=== PATIENT | female | born 1960 | race Caucasian/White ===

== ENCOUNTER → 2016-05-06 | Outpatient (CLI) | payer BC ==
[~2016-05-06] MED LIST: HYDR-3812 PO; LEVO25TA5 PO; METF1000 PO; VNL37.5T PO
--- NOTE | 2016-05-06 13:25 | Diagnostic Imaging Report ---
INDICATION: Digital mammogram bilateral screening. This study was compared to the prior exams of 02/28/15, 04/24/13 and 02/03/12. At this time, there are no current complaints. The current study was also evaluated with a Computer Aided Detection (CAD) system. FINDINGS: The fibroglandular tissue in both breasts is heterogeneously dense. This does limit the sensitivity of this exam. Overall, there does not appear to have been any significant change when compared to the prior study. No primary or secondary sign of malignancy is noted. IMPRESSION: There is no radiographic evidence for malignancy. ACR BI-RADS Category 1: Negative. Result letter will be mailed to the patient. Note: At least 10% of breast cancer is not imaged by mammography. Dictated by: Dictated on workstation # [id number]
== END ==
LOC: RAD 08:33
PROVIDERS: ATTEND Internal Medicine Hematology & Oncology
DX: Z12.31 Encounter for screening mammogram for malignant neoplasm of breast (principal)

== ENCOUNTER 2016-05-28 05:39 | Outpatient (CLI) | payer BC ==
[~2016-05-28] VITALS: Ht 160 cm; Wt 68.0 kg
--- OUTSIDE RECORDS SUMMARY | 2016-05-28 05:42 | XMS REPORT | Continuity of Care Document ---
Author Author [facility] of [facility] Address Unknown Phone Unavailable Allergies Medications Problems Date Dx Coded Attending Type Code Diagnosis Diagnosed By 03/11/1553 MADAY MCDONNELL MD, Ot D64.9 ANEMIA, UNSPECIFIED 03/11/1553 MADAY MCDONNELL MD, Ot E03.9 HYPOTHYROIDISM, UNSPECIFIED 03/11/1553 MADAY MCDONNELL MD, Ot E11.9 TYPE 2 DIABETES MELLITUS WITHOUT COMPLIC 03/11/1553 MADAY MCDONNELL MD, Ot Z79.899 OTHER [facility] (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 THERAPY 04/26/2013 MASTERSON DO, CANDI K V04.81 FLU SHOT 07/17/2014 ELLIS DO, JUAN Ot V76.12 11/01/2014 ELLIS DO, JUAN Ot V76.12 12/31/2014 ELLIS DO, JUAN Ot V76.12 03/15/2015 ELLIS DO, JUAN Ot Z12.31 06/20/2015 MADAY MCDONNELL MD, Ot D64.9 06/25/2015 ELLIS DO, JUAN Ot V76.12 06/25/2015 CALEB DO, JUAN Ot Z12.31 06/25/2015 MADAY MCDONNELL MD, Ot D64.9 06/25/2015 MADAY MCDONNELL MD, Ot R74.8 07/08/2015 MADAY MCDONNELL MD Ot R74.8 08/27/2015 MADAY MCDONNELL MD, Ot D64.9 ANEMIA, UNSPECIFIED 08/27/2015 MADAY MCDONNELL MD Ot E03.9 HYPOTHYROIDISM, UNSPECIFIED 08/27/2015 MADAY MCDONNELL MD Ot E11.9 TYPE 2 DIABETES MELLITUS WITHOUT COMPLIC 08/27/2015 MADAY MCDONNELL MD, Ot E66.9 OBESITY, UNSPECIFIED 08/27/2015 MADAY MCDONNELL MD Ot E83.118 OTHER HEMOCHROMATOSIS 08/27/2015 MADAY MCDONNELL MD Ot R94.5 ABNORMAL RESULTS OF LIVER FUNCTION STUDI 08/27/2015 MADAY MCDONNELL MD Ot Z68.30 BODY MASS INDEX (BMI) 30.0-30.9, ADULT 08/27/2015 MADAY MCDONNELL MD, Ot 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 08/28/2015 MADAY MCDONNELL MD Ot E03.9 HYPOTHYROIDISM, UNSPECIFIED 08/28/2015 MADAY MCDONNELL MD Ot E11.9 TYPE 2 DIABETES MELLITUS WITHOUT COMPLIC 08/28/2015 MADAY MCDONNELL MD Ot E66.9 OBESITY, UNSPECIFIED 08/28/2015 MADAY MCDONNELL MD, Ot E83.118 OTHER HEMOCHROMATOSIS 08/28/2015 MADAY MCDONNELL MD Ot R94.5 ABNORMAL RESULTS OF LIVER FUNCTION STUDI 08/28/2015 MADAY MCDONNELL MD, Ot Z68.30 BODY MASS INDEX (BMI) 30.0-30.9, ADULT 08/28/2015 MADAY MCDONNELL MD, Ot 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 09/04/2015 MADAY MCDONNELL MD Ot D64.9 ANEMIA, UNSPECIFIED 09/11/2015 MADAY MCDONNELL MD Ot D64.9 ANEMIA, UNSPECIFIED 10/02/2015 MADAY MCDONNELL MD Ot D64.9 ANEMIA, UNSPECIFIED 12/09/2015 MADAY MCDONNELL MD Ot D64.9 ANEMIA, UNSPECIFIED 12/10/2015 MADAY MCDONNELL MD Ot D64.9 ANEMIA, UNSPECIFIED 12/12/2015 MADAY MCDONNELL MD Ot D64.9 ANEMIA, UNSPECIFIED 12/31/2015 MADAY MCDONNELL MD Ot D64.9 ANEMIA, UNSPECIFIED 12/31/2015 MADAY MCDONNELL MD Ot E03.9 HYPOTHYROIDISM, UNSPECIFIED 12/31/2015 MADAY MCDONNELL MD Ot E11.9 TYPE 2 DIABETES MELLITUS WITHOUT COMPLIC 12/31/2015 MADAY MCDONNELL MD Ot 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 01/20/2016 MADAY MCDONNELL MD Ot D64.9 ANEMIA, UNSPECIFIED 01/20/2016 MADAY MCDONNELL MD Ot E03.9 HYPOTHYROIDISM, UNSPECIFIED 01/20/2016 MADAY MCDONNELL MD Ot E11.9 TYPE 2 DIABETES MELLITUS WITHOUT COMPLIC 01/20/2016 MADAY MCDONNELL MD Ot 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 03/23/2016 MADAY MCDONNELL MD Ot D64.9 ANEMIA, UNSPECIFIED 03/23/2016 MADAY MCDONNELL MD Ot E03.9 HYPOTHYROIDISM, UNSPECIFIED 03/23/2016 MADAY MCDONNELL MD Ot E11.9 TYPE 2 DIABETES MELLITUS WITHOUT COMPLIC 03/23/2016 MADAY MCDONNELL MD Ot 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 04/22/2016 MADAY MCDONNELL MD Ot D64.9 ANEMIA, UNSPECIFIED 04/22/2016 MADAY MCDONNELL MD Ot E03.9 HYPOTHYROIDISM, UNSPECIFIED 04/22/2016 MADAY MCDONNELL MD Ot E11.9 TYPE 2 DIABETES MELLITUS WITHOUT COMPLIC 04/22/2016 MADAY MCDONNELL MD Ot 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 05/06/2016 JUAN ELLIS DO Ot V76.12 OTH SCREEN MAMMO-MALIGN NEOPLASM OF NIDIA 05/06/2016 JUAN ELLIS DO Ot Z12.31 ENCNTR SCREEN MAMMOGRAM FOR MALIGNANT NE 05/06/2016 MADAY MCDONNELL MD Ot R74.8 ABNORMAL LEVELS OF OTHER SERUM ENZYMES 05/06/2016 MADAY MCDONNELL MD, Ot D64.9 ANEMIA, UNSPECIFIED 05/06/2016 MADAY MCDONNELL MD Ot E03.9 HYPOTHYROIDISM, UNSPECIFIED 05/06/2016 MADAY MCDONNELL MD Ot E11.9 TYPE 2 DIABETES MELLITUS WITHOUT COMPLIC 05/06/2016 MADAY MCDONNELL MD Ot 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 Visit Date/Time Discharge Status Pt. Type Provider Facility Loc./Unit Complaint [id number] 04/26/2013 12:17:00 04/26/2013 23: 59:59 [facility] Outpatient CANDI MASTERSON DO
== END 2016-05-28 13:17 ==
LOC: PREOP 05:39
PROVIDERS: ATTEND Surgery
DX: Z01.818 Encounter for other preprocedural examination (principal); Z12.11 Encounter for screening for malignant neoplasm of colon

== ENCOUNTER 2016-06-01 07:18 | Day surgery (SDC) | payer BC ==
[~2016-06-01] VITALS: Ht 160 cm; Wt 68.0 kg
--- OUTSIDE RECORDS SUMMARY | 2016-06-01 07:21 | XMS REPORT | Continuity of Care Document ---
Author Author [facility] C[facility] of [facility] Address Unknown Phone Unavailable Allergies Active Description Code Type Severity Reaction Onset Reported/Identified Relationship to Patient Clinical Status Yes No Known Drug Allergies [id number] Drug Allergy Unknown N/ A 05/28/2016 Medications Problems Date Dx Coded Attending Type Code Diagnosis Diagnosed By 03/11/1553 MADAY MCDONNELL MD, Ot D64.9 ANEMIA, UNSPECIFIED 03/11/1553 MADAY MCDONNELL MD, Ot E03.9 HYPOTHYROIDISM, UNSPECIFIED 03/11/1553 MADAY MCDONNELL MD Ot E11.9 TYPE 2 DIABETES MELLITUS WITHOUT COMPLIC 03/11/1553 MADAY MCDONNELL MD Ot 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 04/26/2013 MASTERSON DO, CANDI K V04.81 FLU SHOT 07/17/2014 ELLIS DO, JUAN Ot V76.12 11/01/2014 ELLIS DO, JUAN Ot V76.12 12/31/2014 ELLIS DO, JUAN Ot V76.12 03/15/2015 ELLIS DO, JUAN Ot Z12.31 06/20/2015 MADAY MCDONNELL MD Ot D64.9 06/25/2015 ELLIS DO, JUAN Ot V76.12 06/25/2015 ELLIS DO, JUAN Ot Z12.31 06/25/2015 MADAY MCDONNELL MD Ot D64.9 06/25/2015 MADAY MCDONNELL MD Ot R74.8 07/08/2015 MADAY MCDONNELL MD Ot R74.8 08/27/2015 MADAY MCDONNELL MD, Ot D64.9 ANEMIA, UNSPECIFIED 08/27/2015 MADAY MCDONNELL MD Ot E03.9 HYPOTHYROIDISM, UNSPECIFIED 08/27/2015 MADAY MCDONNELL MD Ot E11.9 TYPE 2 DIABETES MELLITUS WITHOUT COMPLIC 08/27/2015 MADAY MCDONNELL MD Ot E66.9 OBESITY, UNSPECIFIED 08/27/2015 KECIA CAMARENA, MADAY Couch Ot E83.118 OTHER HEMOCHROMATOSIS 08/27/2015 MADAY MCDONNELL MD Ot R94.5 ABNORMAL RESULTS OF LIVER FUNCTION STUDI 08/27/2015 MADAY MCDONNELL MD, Ot Z68.30 BODY MASS INDEX (BMI) 30.0-30.9, ADULT 08/27/2015 MADAY MCDONNELL MD, Ot 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899 OTHER PENITENTIARY (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 THERAPY 01/20/2016 MADAY MCDONNELL MD Ot D64.9 ANEMIA, UNSPECIFIED 01/20/2016 MADAY MCDONNELL MD Ot E03.9 HYPOTHYROIDISM, UNSPECIFIED 01/20/2016 MADAY MCDONNELL MD Ot E11.9 TYPE 2 DIABETES MELLITUS WITHOUT COMPLIC 01/20/2016 MADAY MCDONNELL MD Ot 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 03/23/2016 MADAY MCDONNELL MD Ot D64.9 ANEMIA, UNSPECIFIED 03/23/2016 MADAY MCDONNELL MD Ot E03.9 HYPOTHYROIDISM, UNSPECIFIED 03/23/2016 MADAY MCDONNELL MD Ot E11.9 TYPE 2 DIABETES MELLITUS WITHOUT COMPLIC 03/23/2016 MADAY MCDONNELL MD Ot Z79.899 OTHER PENITENTIARY (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 THERAPY 04/22/2016 MADAY MCDONNELL MD Ot D64.9 ANEMIA, UNSPECIFIED 04/22/2016 MADAY MCDONNELL MD Ot E03.9 HYPOTHYROIDISM, UNSPECIFIED 04/22/2016 MADAY MCDONNELL MD Ot E11.9 TYPE 2 DIABETES MELLITUS WITHOUT COMPLIC 04/22/2016 MADAY MCDONNELL MD, Ot 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 05/06/2016 JUAN ELLIS DO Ot V76.12 OTH SCREEN MAMMO-MALIGN NEOPLASM OF NIDIA 05/06/2016 JUAN ELLIS DO Ot Z12.31 ENCNTR SCREEN MAMMOGRAM FOR MALIGNANT NE 05/06/2016 MADAY MCDONNELL MD Ot R74.8 ABNORMAL LEVELS OF OTHER SERUM ENZYMES 05/06/2016 MADAY MCDONNELL MD Ot D64.9 ANEMIA, UNSPECIFIED 05/06/2016 MADAY MCDONNELL MD Ot E03.9 HYPOTHYROIDISM, UNSPECIFIED 05/06/2016 MADAY MCDONNELL MD Ot E11.9 TYPE 2 DIABETES MELLITUS WITHOUT COMPLIC 05/06/2016 MADAY MCDONNELL MD Ot 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 05/07/2016 MADAY MCDONNELL MD Ot Z12.31 ENCNTR SCREEN MAMMOGRAM FOR MALIGNANT NE 05/08/2016 MADAY MCDONNELL MD Ot Z12.31 ENCNTR SCREEN MAMMOGRAM FOR MALIGNANT NE 05/14/2016 MADAY MCDONNELL MD Ot Z12.31 ENCNTR SCREEN MAMMOGRAM FOR MALIGNANT NE 05/27/2016 MADAY MCDONNELL MD Ot D64.9 ANEMIA, UNSPECIFIED 05/27/2016 MADAY MCDONNELL MD Ot E03.9 HYPOTHYROIDISM, UNSPECIFIED 05/27/2016 MADAY MCDONNELL MD Ot E11.9 TYPE 2 DIABETES MELLITUS WITHOUT COMPLIC 05/27/2016 MADAY MCDONNELL MD Ot 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 Visit Date/Time Discharge Status Pt. Type Provider Facility Loc./Unit Complaint [id number] 04/26/2013 12:17:00 04/26/2013 23: 59:59 [facility] Outpatient CANDI MASTERSON DO
--- OUTSIDE RECORDS SUMMARY | 2016-06-01 07:22 | XMS REPORT | Continuity of Care Document ---
Author Author [facility] of [facility] Address Unknown Phone Unavailable Allergies Active Description Code Type Severity Reaction Onset Reported/Identified Relationship to Patient Clinical Status Yes No Known Drug Allergies [id number] Drug Allergy Unknown N/ A 05/28/2016 Medications Problems Date Dx Coded Attending Type Code Diagnosis Diagnosed By 03/11/1553 MADAY MCDONNELL MD, Ot D64.9 ANEMIA, UNSPECIFIED 03/11/1553 MADAY MCDONNELL MD, Ot E03.9 HYPOTHYROIDISM, UNSPECIFIED 03/11/1553 MADAY MCDONNELL MD Ot E11.9 TYPE 2 DIABETES MELLITUS WITHOUT COMPLIC 03/11/1553 MADAY MCDONNELL MD Ot 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 04/26/2013 MASTERSON DO, CANDI [...] 08/27/2015 MADAY MCDONNELL MD, Ot 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 08/28/2015 MADAY MCDONNELL MD [...] 08/28/2015 MADAY MCDONNELL MD, Ot 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 09/04/2015 MADAY MCDONNELL MD [...] 12/31/2015 MADAY MCDONNELL MD Ot Z79.899 OTHER LONG-TERM (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 THERAPY 01/20/2016 MADAY MCDONNELL MD Ot D64.9 ANEMIA, UNSPECIFIED 01/20/2016 MADAY MCDONNELL MD Ot E03.9 HYPOTHYROIDISM, UNSPECIFIED 01/20/2016 MADAY MCDONNELL MD Ot E11.9 TYPE 2 DIABETES MELLITUS WITHOUT COMPLIC 01/20/2016 MADAY MCDONNELL MD Ot 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 03/23/2016 MADAY MCDONNELL MD Ot D64.9 ANEMIA, UNSPECIFIED 03/23/2016 MADAY MCDONNELL MD Ot E03.9 HYPOTHYROIDISM, UNSPECIFIED 03/23/2016 MADAY MCDONNELL MD Ot E11.9 TYPE 2 DIABETES MELLITUS WITHOUT COMPLIC 03/23/2016 MADAY MCDONNELL MD Ot Z79.899 OTHER LONG-TERM (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 THERAPY 04/22/2016 MADAY MCDONNELL MD Ot D64.9 ANEMIA, UNSPECIFIED 04/22/2016 MADAY MCDONNELL MD Ot E03.9 HYPOTHYROIDISM, UNSPECIFIED 04/22/2016 MADAY MCDONNELL MD Ot E11.9 TYPE 2 DIABETES MELLITUS WITHOUT COMPLIC 04/22/2016 MADAY MCDONNELL MD, Ot 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 05/06/2016 JUAN ELLIS DO [...] 05/06/2016 MADAY MCDONNELL MD Ot 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 05/07/2016 MADAY MCDONNELL MD [...] 05/27/2016 MADAY MCDONNELL MD Ot 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 05/29/2016 JENN CAMARENA, VILLA Eddy Ot Z01.818 ENCOUNTER FOR OTHER PREPROCEDURAL EXAMIN 05/29/2016 JENN CAMARENA, VILLA Eddy Ot Z12.11 ENCOUNTER FOR SCREENING FOR MALIGNANT NE Procedures Results Encounters ACCT No. Visit Date/Time Discharge Status Pt. Type Provider Facility Loc./Unit Complaint [id number] 04/26/2013 12:17:00 04/26/2013 23: 59:59 [facility] Outpatient CANDI MASTERSON DO
[2016-06-01] MEDS ORDERED: NS IV 500 ML 500 ML IV PRN (07:30)
[2016-06-01] MEDS ORDERED: NALOXONE 0.4 MG/ML 1 ML (NARCAN) VIAL IVP PRN (07:30)
[2016-06-01] MEDS ORDERED: FLUMAZENIL (ROMAZICON) 0.1 MG/ML 5 ML VIAL INJ PRN (07:30)
[2016-06-01 07:53] VITALS: BP 141/88
[2016-06-01] MEDS ORDERED: METF1000 PO (08:03)
[2016-06-01] MEDS ORDERED: LEVO25TA5 PO (08:05)
[2016-06-01] MEDS ORDERED: VNL37.5T PO (08:06)
[2016-06-01] MEDS ORDERED: MIDAZOLAM 2 MG/2 ML (VERSED) VIAL ONE ×4 (08:14)
[2016-06-01] MEDS ORDERED: fentaNYL INJECTION 100 MCG/2 ML AMP ONE (08:14)
[2016-06-01] MEDS: fentaNYL INJECTION 100 MCG/2 ML AMP IVP PRN ×2 (08:25→08:28)
[2016-06-01] MEDS: MIDAZOLAM 2 MG/2 ML (VERSED) VIAL IVP PRN ×2 (08:26→08:29)
--- NOTE | 2016-06-01 08:35 | Pre-Op Note & Conscious Sedat ---
Pre-Operative Progress Note H&P Reviewed The H&P was reviewed, patient examined and no changes noted. Date H&P Reviewed: Jun 01, 2016 Time H&P Reviewed: 08:05 Pre-Op Diagnosis: screening Conscious Sedation Pre-Proced ASA Class: 2 Airway Mallampati Classification: (sokaogon appropriate class) I. II. III, IV Lungs Heart ASA score ASA 1: a normal healthy patient ASA 2: a patient with a mild systemic disease (mid diabetes, controlled hypertension, obesity ASA 3: a patient with a severe systemic disease that limits activity (angina , COPD, prior Myocardial infarction) ASA 4: a patient with an incapacitating disease that is a constant threat to life (CHF, renal failure) ASA 5: a moribund patient not expected to survive 24 hrs. (ruptured aneurysm) ASA 6: a declared brain patient whose organs are being harvested. For emergent operations, add the letter E after the classification Grade 2 Sedation Plan: Discussed options with patient/fam Note The patient is an appropriate candidate to undergo the planned procedure, sedation, and anesthesia. The patient immediately re-assessed prior to indication. VILLA BARAJAS MD Jun 01, 2016 8:35 am
--- NOTE | 2016-06-01 08:53 | Progress Note-Post Operative ---
Post-Operative Progess Note Pre-Operative Diagnosis screening Post-Operative Diagnosis normal exam Post-Op Procedure Note Date of Procedure: Jun 01, 2016 Name of Procedure: ccolonoscopy to cecum Anesthesia Type sedation VILLA BARAJAS MD Jun 01, 2016 8:53 am
--- NOTE | 2016-06-01 08:54 | Discharge Inst-Simple/Standard ---
Discharge Inst-Standard Discharge Medications New, Converted or Re-Newed RX: Other Patient Instructions/Follow Up Plan of Care/Instructions/FU: repeat colonoscopy in 10 years Activity as Tolerated: Yes Discharge Diet: ADA Diet VILLA BARAJAS MD Jun 01, 2016 8:54 am
[2016-06-01 09:10] VITALS: BP 130/87
[2016-06-01 09:40] VITALS: BP 124/89
[2016-06-01 09:50] VITALS: BP 124/89
--- NOTE | 2016-06-01 11:55 | PROCEDURE REPORT ---
PROCEDURE PHYSICIAN: VILLA BARAJAS DATE OF PROCEDURE: 06/01/2016 PROCEDURE: Screening colonoscopy. SURGEON: Dr. Barajas. INDICATION FOR THE PROCEDURE: This lady came in for screening colonoscopy. She denied any family history of colon cancer. Informed consent was obtained after reviewing the procedure in detail. DESCRIPTION OF PROCEDURE: She was placed in left lateral decubitus position and her vital signs were monitored. Conscious sedation was achieved using Versed and fentanyl. Digital rectal examination was unremarkable. The colonoscope was then introduced into the rectum and advanced all the way up to the cecum. The scope was then withdrawn slowly and the mucosa examined in a systematic fashion. There was no abnormality. She tolerated the procedure well and was taken back to the nursing area in a stable condition. IMPRESSION: 1. Normal screening colonoscopy. 2. No family history. 3. Recommend repeating in 10 years. Job ID: [id number] Dictated Date: 06/01/2016 08:52:23 Water Safety Instructor Date: 06/01/2016 11:53:44 / berto GUAMAN
== END 2016-06-01 09:50 | disposition home or self-care (01) ==
LOC: ENDO 07:18
PROVIDERS: ATTEND Surgery
DX: Z12.11 Encounter for screening for malignant neoplasm of colon (principal)

== ENCOUNTER → 2016-06-08 | Outpatient (CLI) | payer BC ==
--- OUTSIDE RECORDS SUMMARY | 2016-06-08 08:19 | XMS REPORT | Continuity of Care Document ---
Author Author [facility] Ctr of [facility] Ctr [facility] Address Unknown Phone Unavailable Allergies Active Description Code Type Severity Reaction Onset Reported/Identified Relationship to Patient Clinical Status Yes No Known Drug Allergies [id number] Drug Allergy Unknown N/ A 05/28/2016 Medications Problems Date Dx Coded Attending Type Code Diagnosis Diagnosed By 03/11/1553 MADAY MCDONNELL MD, Ot D64.9 ANEMIA, UNSPECIFIED 03/11/1553 MADAY MCDONNELL MD, Ot E03.9 HYPOTHYROIDISM, UNSPECIFIED 03/11/1553 MADAY MCDONNELL MD Ot E11.9 TYPE 2 DIABETES MELLITUS WITHOUT COMPLIC 03/11/1553 MADAY MCDONNELL MD Ot 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 04/26/2013 MASTERSON DO, CANDI [...] MCDONNELL MD, Ot D64.9 ANEMIA, UNSPECIFIED 08/27/2015 MAADY MCDONNELL MD Ot E03.9 HYPOTHYROIDISM, UNSPECIFIED 08/27/2015 [...] 08/27/2015 MADAY MCDONNELL MD, Ot 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 08/28/2015 MADAY MCDONNELL [...] 08/28/2015 MADAY MCDONNELL MD, Ot 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 09/04/2015 MADAY MCDONNELL [...] 12/31/2015 MADAY MCDONNELL MD Ot Z79.899 OTHER [facility] (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 THERAPY 01/20/2016 MADAY MCDONNELL MD Ot D64.9 ANEMIA, UNSPECIFIED 01/20/2016 MADAY MCDONNELL MD Ot E03.9 HYPOTHYROIDISM, UNSPECIFIED 01/20/2016 MADAY MCDONNELL MD Ot E11.9 TYPE 2 DIABETES MELLITUS WITHOUT COMPLIC 01/20/2016 MADAY MCDONNELL MD Ot 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 03/23/2016 MADAY MCDONNELL MD Ot D64.9 ANEMIA, UNSPECIFIED 03/23/2016 MADAY MCDONNELL MD Ot E03.9 HYPOTHYROIDISM, UNSPECIFIED 03/23/2016 MADAY MCDONNELL MD Ot E11.9 TYPE 2 DIABETES MELLITUS WITHOUT COMPLIC 03/23/2016 MADAY MCDONNELL MD Ot Z79.899 OTHER MCC (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 THERAPY 04/22/2016 MADAY MCDONNELL MD Ot D64.9 ANEMIA, UNSPECIFIED 04/22/2016 MADAY MCDONNELL MD Ot E03.9 HYPOTHYROIDISM, UNSPECIFIED 04/22/2016 MADAY MCDONNELL MD Ot E11.9 TYPE 2 DIABETES MELLITUS WITHOUT COMPLIC 04/22/2016 MADAY MCDONNELL MD, Ot 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 05/06/2016 JUAN ELLIS [...] 05/06/2016 MADAY MCDONNELL MD Ot 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 05/07/2016 MADAY MCDONNELL MD Ot Z12.31 ENCNTR SCREEN MAMMOGRAM FOR MALIGNANT NE 05/08/2016 MADAY CMDONNELL MD Ot Z12.31 ENCNTR SCREEN MAMMOGRAM FOR MALIGNANT NE 05/14/2016 MADAY MCDONNELL MD Ot Z12.31 ENCNTR SCREEN MAMMOGRAM FOR MALIGNANT NE 05/27/2016 MADAY MCDONNELL MD Ot D64.9 ANEMIA, UNSPECIFIED 05/27/2016 MADAY MCDONNELL MD Ot E03.9 HYPOTHYROIDISM, UNSPECIFIED 05/27/2016 MADAY MCDONNELL MD Ot E11.9 TYPE 2 DIABETES MELLITUS WITHOUT COMPLIC 05/27/2016 MADAY MCDONNELL MD Ot 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 Visit Date/Time Discharge Status Pt. Type Provider Facility Loc./Unit Complaint [id number] 04/26/2013 12:17:00 04/26/2013 23: 59:59 [facility] Outpatient CANDI MASTERSON DO
--- NOTE | 2016-06-08 09:56 | Diagnostic Imaging Report ---
PROCEDURE: US abdomen complete. TECHNIQUE: Multiple real-time grayscale images were obtained over the abdomen in various projections. INDICATION: Bilateral flank pain. FINDINGS: The liver demonstrates no focal mass. There is hepatopetal flow in the portal vein. The gallbladder demonstrates a 5-mm hypoechoic lesion with no shadowing compatible with polyp. The CBD is 4 mm in caliber. The right kidney is 11.3 cm, and the left kidney is 11.0 cm in length. The inferior pole of the left kidney is obscured. The spleen is 10.0 cm in length with no hydronephrosis or focal lesion. The abdominal aorta is normal in caliber. The IVC is obscured. No fluid collection or ascites in the abdomen is seen. IMPRESSION: There is a 5-mm polyp in the gallbladder with no definite stone and no evidence of cholecystitis. Dictated by: Dictated on workstation # [id number]
== END ==
LOC: RAD 08:16
PROVIDERS: ATTEND Internal Medicine
DX: K82.4 Cholesterolosis of gallbladder (principal); R10.84 Generalized abdominal pain
CPT/HCPCS: 76700

== ENCOUNTER 2016-06-11 11:30 | Outpatient (RCR) | payer BC ==
[2016-03-20 08:54] LABS: BASOPHILS % (AUTO) 0 % (0-10); EOSINOPHILS # (AUTO) 0.2 10^3/uL (0.0-0.3); EOSINOPHILS % (AUTO) 3 % (0-10); LYMPHOCYTES # (AUTO) 1.4 X 10^3 (1.0-4.0); LYMPHOCYTES % (AUTO) 30 % (12-44); MEAN CORPUSCULAR HEMOGLOBIN 30 PG (25-34); MEAN CORPUSCULAR HGB CONC 34 G/DL (32-36); MEAN CORPUSCULAR VOLUME 87 FL (80-99); MEAN PLATELET VOLUME 10.9 FL (7.4-10.4); MONOCYTES # (AUTO) 0.4 X 10^3 (0.0-1.0); MONOCYTES % (AUTO) 7 % (0-12); NEUTROPHILS # (AUTO) 2.9 X 10^3 (1.8-7.8); NEUTROPHILS % (AUTO) 59 % (42-75); PLATELET COUNT 205 10^3/uL (130-400); RED BLOOD COUNT 4.47 10^6/uL (4.35-5.85); RED CELL DISTRIBUTION WIDTH 13.4 % (10.0-14.5); WHITE BLOOD COUNT 4.8 10^3/uL (4.3-11.0)
[2016-03-20 09:13] LABS: ALANINE AMINOTRANSFERASE 110 U/L (0-55); ALBUMIN 4.1 G/DL (3.2-4.5); ANION GAP 7 MMOL/L (5-14); ASPARTATE AMINO TRANSFERASE 97 U/L (5-34); BILIRUBIN,TOTAL 0.4 MG/DL (0.1-1.0); BLOOD UREA NITROGEN 10 MG/DL (7-18); BUN/CREATININE RATIO 13; CALCIUM 9.6 MG/DL (8.5-10.1); CARBON DIOXIDE 26 MMOL/L (21-32); CHLORIDE 107 MMOL/L (98-107); GFR ESTIMATED > 60; GLUCOSE 148 MG/DL (70-105); POTASSIUM 3.7 MMOL/L (3.6-5.0); SODIUM 140 MMOL/L (135-145); TOTAL PROTEIN 6.7 G/DL (6.4-8.2)
[2016-03-20 14:28] LABS: %SAT TOTAL IRON BINDING CAPIC 32 % (15-50); TIBC 349 ug/dL (280-380)
[2016-03-23 08:08] LABS: FERRITIN 128 ng/mL (15-150); UIBC 237 ug/dL (55-450)
[2016-04-28 08:43] LABS: BASOPHILS % (AUTO) 1 % (0-10); EOSINOPHILS # (AUTO) 0.2 10^3/uL (0.0-0.3); EOSINOPHILS % (AUTO) 4 % (0-10); LYMPHOCYTES # (AUTO) 1.2 X 10^3 (1.0-4.0); LYMPHOCYTES % (AUTO) 26 % (12-44); MEAN CORPUSCULAR HEMOGLOBIN 30 PG (25-34); MEAN CORPUSCULAR HGB CONC 35 G/DL (32-36); MEAN CORPUSCULAR VOLUME 87 FL (80-99); MEAN PLATELET VOLUME 10.1 FL (7.4-10.4); MONOCYTES # (AUTO) 0.3 X 10^3 (0.0-1.0); MONOCYTES % (AUTO) 6 % (0-12); NEUTROPHILS % (AUTO) 63 % (42-75); PLATELET COUNT 226 10^3/uL (130-400); RED BLOOD COUNT 4.01 10^6/uL (4.35-5.85); RED CELL DISTRIBUTION WIDTH 13.6 % (10.0-14.5); WHITE BLOOD COUNT 4.8 10^3/uL (4.3-11.0)
[2016-04-28 09:06] LABS: ALANINE AMINOTRANSFERASE 77 U/L (0-55); ALBUMIN 4.2 G/DL (3.2-4.5); ANION GAP 9 MMOL/L (5-14); ASPARTATE AMINO TRANSFERASE 58 U/L (5-34); BILIRUBIN,TOTAL 0.5 MG/DL (0.1-1.0); BLOOD UREA NITROGEN 9 MG/DL (7-18); BUN/CREATININE RATIO 11; CALCIUM 9.2 MG/DL (8.5-10.1); CARBON DIOXIDE 25 MMOL/L (21-32); CHLORIDE 107 MMOL/L (98-107); GFR ESTIMATED > 60; GLUCOSE 121 MG/DL (70-105); POTASSIUM 3.6 MMOL/L (3.6-5.0); SODIUM 141 MMOL/L (135-145); TOTAL PROTEIN 6.7 G/DL (6.4-8.2)
[2016-04-28 11:48] LABS: %SAT TOTAL IRON BINDING CAPIC 25 % (15-50); TIBC 390 ug/dL (280-380)
[2016-04-28 15:08] LABS: UIBC 291 ug/dL (55-450)
[2016-04-29 07:41] LABS: FERRITIN 22 ng/mL (15-150)
[~2016-06-11 11:30] MED LIST changes: -HYDR-3812 PO
[2016-06-11 11:37] LABS: BASOPHILS % (AUTO) 0 % (0-10); EOSINOPHILS # (AUTO) 0.2 10^3/uL (0.0-0.3); EOSINOPHILS % (AUTO) 2 % (0-10); LYMPHOCYTES # (AUTO) 2.1 X 10^3 (1.0-4.0); LYMPHOCYTES % (AUTO) 30 % (12-44); MEAN CORPUSCULAR HEMOGLOBIN 29 PG (25-34); MEAN CORPUSCULAR HGB CONC 34 G/DL (32-36); MEAN CORPUSCULAR VOLUME 86 FL (80-99); MEAN PLATELET VOLUME 10.9 FL (7.4-10.4); MONOCYTES # (AUTO) 0.5 X 10^3 (0.0-1.0); MONOCYTES % (AUTO) 7 % (0-12); NEUTROPHILS # (AUTO) 4.1 X 10^3 (1.8-7.8); NEUTROPHILS % (AUTO) 61 % (42-75); PLATELET COUNT 225 10^3/uL (130-400); RED BLOOD COUNT 4.31 10^6/uL (4.35-5.85); RED CELL DISTRIBUTION WIDTH 13.2 % (10.0-14.5); WHITE BLOOD COUNT 6.8 10^3/uL (4.3-11.0)
[2016-06-11 12:10] LABS: ALANINE AMINOTRANSFERASE 86 U/L (0-55); ALBUMIN 4.3 G/DL (3.2-4.5); ANION GAP 11 MMOL/L (5-14); ASPARTATE AMINO TRANSFERASE 79 U/L (5-34); BILIRUBIN,TOTAL 0.3 MG/DL (0.1-1.0); BLOOD UREA NITROGEN 10 MG/DL (7-18); BUN/CREATININE RATIO 11; CALCIUM 9.6 MG/DL (8.5-10.1); CARBON DIOXIDE 23 MMOL/L (21-32); CHLORIDE 107 MMOL/L (98-107); CREATININE SERUM 0.88 MG/DL (0.60-1.30); GFR ESTIMATED > 60; GLUCOSE 101 MG/DL (70-105); POTASSIUM 4.4 MMOL/L (3.6-5.0); SODIUM 141 MMOL/L (135-145)
[2016-07-01] MEDS ORDERED: HYDR-3812 PO (09:02)
== END 2016-06-18 | disposition home or self-care (01) ==
LOC: ONC 11:30
PROVIDERS: ATTEND Internal Medicine Hematology & Oncology
DX: E83.118 Other hemochromatosis (principal); E03.9 Hypothyroidism, unspecified; E11.9 Type 2 diabetes mellitus without complications; Z79.899 Other long term (current) drug therapy
CPT/HCPCS: 36415; 80053; 82728; 83540; 84439; 84443; 85025; 99195; 99213

== ENCOUNTER 2016-06-25 09:05 | Outpatient (CLI) | payer BC ==
[~2016-06-25] VITALS: Ht 160 cm; Wt 68.0 kg
--- OUTSIDE RECORDS SUMMARY | 2016-06-25 09:08 | XMS REPORT | Continuity of Care Document ---
Author Author [facility] Address Unknown Phone Unavailable Allergies Active Description Code Type Severity Reaction Onset Reported/Identified Relationship to Patient Clinical Status Yes No Known Drug Allergies [id number] Drug Allergy Unknown N/ A 05/28/2016 Medications Problems Date Dx Coded Attending Type Code Diagnosis Diagnosed By 03/11/1553 MADAY MCDONNELL MD, Ot D64.9 ANEMIA, UNSPECIFIED 03/11/1553 MADAY MCDONNELL MD, Ot E03.9 HYPOTHYROIDISM, UNSPECIFIED 03/11/1553 MADAY MCDONNELL MD Ot E11.9 TYPE 2 DIABETES MELLITUS WITHOUT COMPLIC 03/11/1553 MADAY MCDONNELL MD Ot 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 TENDER (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 04/26/2013 MASTERSON DO, CANDI [...] 08/27/2015 MADAY MCDONNELL MD, Ot 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 TENDER (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 THERAPY 08/28/2015 MADAY MCDONNELL MD [...] 08/28/2015 MADAY MCDONNELL MD, Ot 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 TENDER (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 THERAPY 09/04/2015 MADAY MCDONNELL MD Ot D64.9 ANEMIA, UNSPECIFIED 09/11/2015 MADAY MCDONNELL MD Ot D64.9 ANEMIA, UNSPECIFIED 10/02/2015 MADAY MCDONNELL MD Ot D64.9 ANEMIA, UNSPECIFIED 12/09/2015 MADAY MCDONNELL MD Ot D64.9 ANEMIA, UNSPECIFIED 12/10/2015 MADAY MCDONNELL MD Ot D64.9 ANEMIA, UNSPECIFIED 12/12/2015 MADAY MCDONNELL MD Ot D64.9 ANEMIA, UNSPECIFIED 12/31/2015 MDAAY MCDONNELL MD Ot D64.9 ANEMIA, UNSPECIFIED 12/31/2015 MADAY MCDONNELL MD Ot E03.9 HYPOTHYROIDISM, UNSPECIFIED 12/31/2015 MADAY MCDONNELL MD Ot E11.9 TYPE 2 DIABETES MELLITUS WITHOUT COMPLIC 12/31/2015 MADAY MCDONNELL MD Ot Z79.899 OTHER LONGTERM (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 THERAPY 01/20/2016 MADAY MCDONNELL MD Ot D64.9 ANEMIA, UNSPECIFIED 01/20/2016 MADAY MCDONNELL MD Ot E03.9 HYPOTHYROIDISM, UNSPECIFIED 01/20/2016 MADAY MCDONNELL MD Ot E11.9 TYPE 2 DIABETES MELLITUS WITHOUT COMPLIC 01/20/2016 MADAY MCDONNELL MD Ot 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 TENDER (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 THERAPY 03/23/2016 MADAY MCDONNELL MD Ot D64.9 ANEMIA, UNSPECIFIED 03/23/2016 MADAY MCDONNELL MD Ot E03.9 HYPOTHYROIDISM, UNSPECIFIED 03/23/2016 MADAY MCDONNELL MD Ot E11.9 TYPE 2 DIABETES MELLITUS WITHOUT COMPLIC 03/23/2016 MADAY MCDONNELL MD Ot Z79.899 OTHER LONGTERM (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 THERAPY 04/22/2016 MADAY MCDONNELL MD Ot D64.9 ANEMIA, UNSPECIFIED 04/22/2016 MADAY MCDONNELL MD Ot E03.9 HYPOTHYROIDISM, UNSPECIFIED 04/22/2016 MADAY MCDONNELL MD Ot E11.9 TYPE 2 DIABETES MELLITUS WITHOUT COMPLIC 04/22/2016 MADAY MCDONNELL MD, Ot 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 TENDER (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 THERAPY 05/06/2016 JUAN ELLIS DO [...] 05/06/2016 MADAY MCDONNELL MD Ot 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 TENDER (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 THERAPY 05/07/2016 MADAY MCDONNELL MD [...] 05/27/2016 MADAY MCDONNELL MD Ot 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 TENDER (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 THERAPY 05/29/2016 JENN CAMARENA, VILLA [...] Z12.11 ENCOUNTER FOR SCREENING FOR MALIGNANT NE 06/09/2016 JUAN ELLIS DO Ot K82.4 CHOLESTEROLOSIS OF GALLBLADDER 06/09/2016 JUAN ELLIS DO Ot R10.84 GENERALIZED ABDOMINAL PAIN 06/18/2016 MADAY MCDONNELL MD Ot D64.9 ANEMIA, UNSPECIFIED 06/18/2016 MADAY MCDONNELL MD Ot E03.9 HYPOTHYROIDISM, UNSPECIFIED 06/18/2016 MADAY MCDONNELL MD Ot E11.9 TYPE 2 DIABETES MELLITUS WITHOUT COMPLIC 06/18/2016 MADAY MCDONNELL MD Ot 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 TENDER (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 THERAPY 06/19/2016 MADAY MCDONNELL MD Ot E03.9 HYPOTHYROIDISM, UNSPECIFIED 06/19/2016 MADAY MCDONNELL MD Ot E11.9 TYPE 2 DIABETES MELLITUS WITHOUT COMPLIC 06/19/2016 MADAY MCDONNELL MD Ot E83.118 OTHER HEMOCHROMATOSIS 06/19/2016 MADAY MCDONNELL MD Ot Z79.899 OTHER LONGTERM (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 THERAPY Procedures Results Encounters ACCT No. Visit Date/Time Discharge Status Pt. Type Provider Facility Loc./Unit Complaint [id number] 04/26/2013 12:17:00 04/26/2013 23: 59:59 CLS Outpatient CANDI MASTERSON DO
== END 2016-06-25 10:17 ==
LOC: PREOP 09:05
PROVIDERS: ATTEND Surgery
DX: Z01.818 Encounter for other preprocedural examination (principal); K82.4 Cholesterolosis of gallbladder; K13.0 Diseases of lips

== ENCOUNTER 2016-07-01 05:49 | Day surgery (SDC) | payer BC ==
[~2016-07-01] VITALS: Ht 160 cm; Wt 68.0 kg
[2016-07-01] MEDS: LACTATED RINGERS 1,000 ML IV PRN ×2 (06:15→08:30)
[2016-07-01 06:20] VITALS: BP 146/99
[2016-07-01] MEDS ORDERED: ceFAZolin 1,000 MG (ANCEF) VIAL ONE (06:26)
[2016-07-01] MEDS ORDERED: metroNIDAZOLE 500MG/100ML IVPB 100 ML ONE (06:26)
[2016-07-01] MEDS ORDERED: NS (IVPB) 50 ML ONE (06:27)
[2016-07-01] MEDS ORDERED: metroNIDAZOLE 500 MG/100 ML IVPB (PRE-MIX) IV ONE (07:00)
[2016-07-01] MEDS ORDERED: CATHETER FLUSH 10 ML SYR IV PRN (07:00)
[2016-07-01] MEDS ORDERED: ceFAZolin 1 GM/NS 50 ML IVPB IV ONE ×2 (07:00)
[2016-07-01] MEDS ORDERED: DEXAMETHASONE PF 10 MG/ML (DECADRON) VIAL ONE (07:04)
[2016-07-01] MEDS ORDERED: ONDANSETRON 4 MG/2 ML (SDV) Z0FRAN ONE (07:04)
[2016-07-01] MEDS ORDERED: ROCURONIUM 50 MG/5 ML (ZEMURON) VIAL IV ONE (07:04)
[2016-07-01] MEDS ORDERED: SEVOFLURANE (ULTANE) 15 ML INHAL SOLN ONE (07:04)
[2016-07-01] MEDS ORDERED: LIDOCAINE PF 2% 10 ML (XYLOCAINE) AMP ONE (07:04)
[2016-07-01] MEDS ORDERED: LACTATED RINGERS 1,000 ML IV ONE ×2 (07:04→08:50)
[2016-07-01] MEDS ORDERED: proPOfol 200 MG/20 ML (DIPRIVAN) VIAL IV ONE (07:04)
[2016-07-01] MEDS ORDERED: MIDAZOLAM 2 MG/2 ML (VERSED) VIAL ONE (07:04)
[2016-07-01] MEDS ORDERED: fentaNYL INJECTION 250 MCG/5 ML AMP ONE (07:04)
[2016-07-01] MEDS ORDERED: BUP/EPI 0.25% 1:200,000 (MARCAINE) 30 ML VIAL ONE (07:25)
--- NOTE | 2016-07-01 07:57 | Progress Note-Pre Operative ---
Pre-Operative Progress Note H&P Reviewed The H&P was reviewed, patient examined and no changes noted. Date H&P Reviewed: Jul 01, 2016 Time H&P Reviewed: 07:57 Pre-Operative Diagnosis: GB polyp. Yoan cyst-lower lip VILLA BARAJAS MD Jul 01, 2016 7:57 am
[2016-07-01] MEDS ORDERED: NEOSTIGMINE (BLOXIVERZ ) 1 MG/1ML 10 ML VIAL ONE (08:42)
[2016-07-01] MEDS ORDERED: GLYCOPYRROLATE 0.2 MG/ML (ROBINUL) 2 ML VIAL ONE (08:42)
--- NOTE | 2016-07-01 09:01 | Progress Note-Post Operative ---
Post-Operative Progess Note Pre-Operative Diagnosis GB polyp. Yoan cyst-lower lip Post-Operative Diagnosis same Post-Op Procedure Note Date of Procedure: Jul 01, 2016 Name of Procedure: robotic-assisted cholecystectomy Excision of cyst lower lip Anesthesia Type Gen. Estimated blood loss (mL): minimal Specimen(s) collected gallbladder. Cyst from the lower lip VILLA BARAJAS MD Jul 01, 2016 9:01 am
[2016-07-01] MEDS ORDERED: HYDR-3812 PO (09:02)
--- NOTE | 2016-07-01 09:03 | Discharge Inst-Simple/Standard ---
Discharge Inst-Standard Discharge Medications New, Converted or Re-Newed RX: RX on Chart Patient Instructions/Follow Up Plan of Care/Instructions/FU: dressings off in 48 hours. Incentive spirometry. Follow-up in 3 weeks. Activity as Tolerated: Yes Discharge Diet: No Restrictions VILLA BARAJAS MD Jul 01, 2016 9:03 am
[2016-07-01] MEDS ORDERED: MEPERIDINE (DEMEROL) INJ 50 MG/ML IVP PRN (09:15)
[2016-07-01] MEDS ORDERED: ONDANSETRON 4 MG/2 ML (SDV) Z0FRAN IVP PRN (09:15)
[2016-07-01] MEDS ORDERED: HYDROmorphone (DILAUDID) 2 MG/ML VIAL IVP PRN (09:15)
[2016-07-01] MEDS ORDERED: morphine INJ 10 MG/ML 1ML (SYR OR VIAL) IVP PRN (09:15)
[2016-07-01] MEDS ORDERED: KETOROLAC 30 MG/ML VIAL ONE (09:34)
[2016-07-01] MEDS ORDERED: KETOROLAC 30 MG/ML VIAL IVP ONE (09:45)
[2016-07-01 10:10] VITALS: BP 130/63
[2016-07-01 10:40] VITALS: BP 136/66
[2016-07-01 11:10] VITALS: BP 133/78
--- NOTE | 2016-07-01 11:34 | OPERATIVE REPORT ---
PROCEDURE PHYSICIAN: VILLA BARAJAS DATE OF PROCEDURE: 07/01/2016 PREOPERATIVE DIAGNOSIS: 1. Symptomatic polyp in the gallbladder . 2. 1-cm cyst lower lip. POSTOPERATIVE DIAGNOSIS: 1. Symptomatic polyp in the gallbladder. 2. 1-cm cyst lower lip. OPERATION: 1. Robotic assisted cholecystectomy. 2. Excision of cyst lower lip. SURGEON: Alexy. ANESTHESIA: General. BLOOD LOSS: Minimal FLUIDS: 800 cc's crystalloids TYPE OF WOUND: Type 2 (Clean-contaminant wound. INDICATION FOR THE PROCEDURE: This lady presented with symptoms due to a small polyp in the gallbladder. She was therefore offered cholecystectomy using minimally invasive technique. During the visit, she requested excision of a long-standing 1 cm cystic lesion on the lower lip, on the right side. I agreed to do so. Informed consent was obtained after reviewing the operative details and complications of bile leak and persistence of her symptoms and wound infection. DESCRIPTION OF THE PROCEDURE: 1. ROBOTIC ASSISTED CHOLECYSTECTOMY: She was placed supine on the operative table and general anesthesia induced using an endotracheal tube. A gram of Ancef and 500 mg of Flagyl were administered intravenously as prophylaxis against wound infection. Sequential compression devices were placed around her legs, to minimize the risk of venous thrombosis. Abdomen was prepared and draped in the usual sterile manner. A subumbilical incision was made and pneumoperitoneum established using a Veress needle. Intraabdominal pressure was maintained at 15 mmHg, using carbon dioxide insufflation. A 12 mm trocar was placed and anatomy visualized using the 3 dimensional, high definition laparoscope associated da Kristy system. Under direct view, I placed an 8 mm cannula over each side of the abdomen, followed by a 5 mm trocar over the left upper quadrant. The patient was then turned into reverse Trendelenburg position with the right side tilted up. The robotic system was then docked in place. The pylorus of the stomach was adherent to the body of the gallbladder. It was taken down using hook cautery. Subsequently, the fundus of the gallbladder was retracted cephalad and infundibulum grasped with the robotic Cadiere forceps. Peritoneum overlying Calot's triangle was incised using the hook cautery, delineating the cystic duct and artery. The former was first divided between locking clips. The cystic artery being slender was controlled using the hook cautery itself. Cholecystectomy was then completed using the same device. The gallbladder then placed in an Endo Catch bag and removed via the subumbilical trocar site. The fascia over this incision was closed using number 1 Vicryl using an Endo Close device under direct laparoscopic view. Skin incisions were closed using 4-0 Vicryl, in a subcuticular fashion. 0.25% Marcaine with epinephrine was infiltrated along the incisions, both preemptively and at the conclusion of the operation. 2. EXCISION OF CYST LOWER LIP: After adequate antiseptic preparation, preemptive analgesia was established using 0.25% Marcaine with epinephrine. An elliptical incision about 1.5 cm long was made and the cyst excised. Hemostasis was achieved using cautery and the incision closed using interrupted 4-0 Vicryl sutures. Steri-Strips were then applied. She tolerated the procedures well, was extubated in the operating room and taken to the recovery room in a stable condition. [place], sponges, and instruments were correct at the end of the operation. Job ID: [id number] Dictated Date: 07/01/2016 09:00:58 Proof Machine Operator Supervisor Date: 07/01/2016 11:21:32 / anu GUAMAN
--- OUTSIDE RECORDS SUMMARY | 2016-07-05 04:14 | XMS REPORT | Continuity of Care Document ---
Author Author [facility] Address Unknown Phone Unavailable Allergies Active Description Code Type Severity Reaction Onset Reported/Identified Relationship to Patient Clinical Status Yes No Known Drug Allergies [id number] Drug Allergy Unknown N/ A 05/28/2016 Medications Problems Date Dx Coded Attending Type Code Diagnosis Diagnosed By 03/11/1553 MADAY MCDONNELL MD, Ot D64.9 ANEMIA, UNSPECIFIED 03/11/1553 MADAY MCDONNELL MD, Ot E03.9 HYPOTHYROIDISM, UNSPECIFIED 03/11/1553 MADAY MCDONNELL MD Ot E11.9 TYPE 2 DIABETES MELLITUS WITHOUT COMPLIC 03/11/1553 MADAY MCDONNELL MD Ot 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.899 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 LINING MACHINE TENDER (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 THERAPY 04/26/2013 MASTERSON [...] 08/27/2015 MADAY MCDONNELL MD, Ot Z79.899 OTHER LINING MACHINE TENDER (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 THERAPY 08/28/2015 MADAY [...] 08/28/2015 MADAY MCDONNELL MD, Ot Z79.899 OTHER LINING MACHINE TENDER (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 THERAPY 09/04/2015 MADAY [...] 12/31/2015 MADAY MCDONNELL MD Ot Z79.899 OTHER GROUP HOME (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 THERAPY 01/20/2016 MADAY MCDONNELL MD Ot D64.9 ANEMIA, UNSPECIFIED 01/20/2016 MADAY MCDONNELL MD Ot E03.9 HYPOTHYROIDISM, UNSPECIFIED 01/20/2016 MADAY MCDONNELL MD Ot E11.9 TYPE 2 DIABETES MELLITUS WITHOUT COMPLIC 01/20/2016 MADAY MCDONNELL MD Ot Z79.899 OTHER LINING MACHINE TENDER (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 THERAPY 03/23/2016 MADAY MCDONNELL MD Ot D64.9 ANEMIA, UNSPECIFIED 03/23/2016 MADAY MCDONNELL MD Ot E03.9 HYPOTHYROIDISM, UNSPECIFIED 03/23/2016 MADAY MCDONNELL MD Ot E11.9 TYPE 2 DIABETES MELLITUS WITHOUT COMPLIC 03/23/2016 MADAY MCDONNELL MD Ot Z79.899 OTHER GROUP HOME (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 THERAPY 04/22/2016 MADAY MCDONNELL MD Ot D64.9 ANEMIA, UNSPECIFIED 04/22/2016 MADAY MCDONNELL MD Ot E03.9 HYPOTHYROIDISM, UNSPECIFIED 04/22/2016 MADAY MCDONNELL MD Ot E11.9 TYPE 2 DIABETES MELLITUS WITHOUT COMPLIC 04/22/2016 MADAY MCDONNELL MD, Ot Z79.899 OTHER LINING MACHINE TENDER (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 THERAPY 05/06/2016 JUAN [...] 05/06/2016 MADAY MCDONNELL MD Ot Z79.899 OTHER LINING MACHINE TENDER (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 THERAPY 05/07/2016 MADAY [...] 05/27/2016 MADAY MCDONNELL MD Ot Z79.899 OTHER LINING MACHINE TENDER (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 THERAPY 05/29/2016 JENN [...] ENCOUNTER FOR SCREENING FOR MALIGNANT NE 06/09/2016 CALEB GARZON JUAN Ot K82.4 CHOLESTEROLOSIS OF GALLBLADDER 06/09/2016 CALEB GARZON JUAN Ot R10.84 GENERALIZED ABDOMINAL PAIN 06/18/2016 KECIA CAMARENA MADAY Iza Ot D64.9 ANEMIA, UNSPECIFIED 06/18/2016 MADAY MCDONNELL MD Ot E03.9 HYPOTHYROIDISM, UNSPECIFIED 06/18/2016 KECIA CAMARENA MADAY K Ot E11.9 TYPE 2 DIABETES MELLITUS WITHOUT COMPLIC 06/18/2016 KECIA CAMARENA MADAY Iza Ot Z79.899 OTHER LINING MACHINE TENDER (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 THERAPY 06/19/2016 MADAY MCDONNELL MD Ot E03.9 HYPOTHYROIDISM, UNSPECIFIED 06/19/2016 MADAY MCDONNELL MD Ot E11.9 TYPE 2 DIABETES MELLITUS WITHOUT COMPLIC 06/19/2016 MADAY MCDONNELL MD Ot E83.118 OTHER HEMOCHROMATOSIS 06/19/2016 MADAY MCDONNELL MD Ot Z79.899 OTHER GROUP HOME (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 THERAPY 06/25/2016 IVLLA BARAJAS MD Ot K13.0 DISEASES OF LIPS 06/25/2016 VILLA BARAJAS MD Ot K82.4 CHOLESTEROLOSIS OF GALLBLADDER 06/25/2016 VILLA BARAJAS MD Ot Z01.818 ENCOUNTER FOR OTHER PREPROCEDURAL EXAMIN 06/25/2016 TOMMY ELLIS DOI Ot K82.4 CHOLESTEROLOSIS OF GALLBLADDER 06/25/2016 TOMMY ELLIS DOI Ot R10.84 GENERALIZED ABDOMINAL PAIN 06/26/2016 VILLA BARAJAS MD Ot K13.0 DISEASES OF LIPS 06/26/2016 VILLA BARAJAS MD Ot K82.4 CHOLESTEROLOSIS OF GALLBLADDER 06/26/2016 VILLA BARAJAS MD Ot Z01.818 ENCOUNTER FOR OTHER PREPROCEDURAL EXAMIN Procedures Results Test Result Range Urine beta human chorionic gonadotropin (hCG) measurement - 07/01/16 06:10 Urine beta human chorionic gonadotropin (hCG) measurement NEGATIVE NEGATIVE Methicillin resistant Staphylococcus aureus (MRSA) screening culture - 06:50 Methicillin resistant Staphylococcus aureus (MRSA) screening culture NEG NRG Encounters ACCT No. Visit Date/Time Discharge Status Pt. Type Provider Facility Loc./Unit Complaint [id number] 04/26/2013 12:17:00 04/26/2013 23: 59:59 CLS Outpatient CANDI MASTERSON DO
--- OUTSIDE RECORDS SUMMARY | 2016-07-05 04:14 | XMS REPORT | Clinical Summary ---
Author Author tatyana lechuga DO, [place] [address] Phone Unavailable Allergies, Adverse Reactions, Alerts Allergy Name Reaction Description Start Date Severity Status Provider No Known Allergies Lucía Collins Conditions or Problems Problem Name Problem Code Onset Date Status Entry Date Provider Comment Standard Description Annotate WELL WOMAN V70.0 Active Lindsey Landers ROUTINE GENERAL MEDICAL EXAMINATION AT HEALTH CARE FACILITY ANEMIA NOS 285.9 Active Lindsey Landers UNSPECIFIED ANEMIA WEIGHT GAIN, ABNORMAL 783.1 Active Lindsey Landers ABNORMAL WEIGHT GAIN LIVER FUNCTION TESTS, ABNORMAL 794.8 Active Lindsey Landers NONSPECIFIC ABNORMAL RESULTS OF LIVER FUNCTION STUDY OTHER NONSPECIFIC ABNORMAL SERUM ENZYME LEVELS 790.5 Active 2011 Leanne Sinai OTHER NONSPECIFIC ABNORMAL SERUM ENZYME LEVELS HYPERGLYCEMIA, MILD 790.6 Active Lindsey Landers OTHER ABNORMAL BLOOD CHEMISTRY OTHER HEMOCHROMATOSIS 275.03 Active Lindsey Landers OTHER HEMOCHROMATOSIS 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 Lindsey Landers GENERALIZED OSTEOARTHROSIS, INVOLVING HAND DIABETES MELLITUS, NONINSULIN DEPENDENT (NIDDM) 250.02 Active Lindsey Landers DIABETES MELLITUS WITHOUT MENTION OF COMPLICATION, TYPE II OR UNSPECIFIED TYPE, UNCONTROLLED HYPOTHYROIDISM, PRIMARY 244.9 Active Lindsey Landers UNSPECIFIED HYPOTHYROIDISM Medication List Medication Instructions Start Date Stop Date Generic Name NDC Status Provider Patient Instruction EFFEXOR XR 37.5 MG [id number] 1 PO daily VENLAFAXINE HCL 51450098967 Active Leanne Rawls SYNTHROID 0.05 MG TAB 1 PO Daily LEVOTHYROXINE SODIUM 68205420604 Active Leanne Rawls PREMPRO 0.3-1.5 MG TABS 1 PO daily CONJ ESTROG-MEDROXYPROGEST IFEANYI 38873970710 Active Lindsey Arthur Landers Vital Signs Date Name Value Unit Range Description blood pressure, diastolic 70 mm[Hg] BP mtz blood pressure, systolic 125 mm[Hg] BP sys pulse rate E&M 80 /min Heart rate respiratory rate E&M 14 /min Resp rate weight E&M 165 [lb_av] Weight Measured blood pressure, diastolic 78 mm[Hg] BP mtz blood pressure, systolic 138 mm[Hg] BP sys pulse rate E&M 80 /min Heart rate respiratory rate E&M 14 /min Resp rate weight E&M 160 [lb_av] Weight Measured blood pressure, diastolic 58 mm[Hg] BP mtz blood pressure, systolic 118 mm[Hg] BP sys pulse rate E&M 74 /min Heart rate respiratory rate E&M 14 /min Resp rate temperature E&M 98.6 [degF] Body temperature weight E&M 164 [lb_av] Weight Measured Diagnostic Results Date Name Value Unit Range Description Clinical Lists Update: CBC,CMP,Chol,Trig,TSH,Free T4,Ferritin,HgA1c - Chemistry Estimated Glomerular Filtration Rate (calc) 79 mL/min/1.73m2 glucose, plasma fasting 160 mg/dL albumin, serum 4.3 g/dL alkaline phosphatase, serum 108 U/L urea nitrogen, blood 11 mg/dL calcium, serum 9.6 mg/dL chloride, serum 104 mmol/L cholesterol, serum 124 mg/dL anion gap, serum sodium, serum 141 mmol/L triglyceride, serum, fasting 80 mg/dL bilirubin, serum, total 0.5 mg/dL alanine aminotransferase (SGPT), serum 108 U/L aspartate aminotransferase (SGOT), serum 60 U/L protein, total, serum 7.0 g/dL potassium, serum 4.1 mmol/L thyroid stimulating hormone, serum 2.93 u[iU]/mL hemoglobin A1C, blood, as % of total hemoglobin 6.1 % thyroxine, serum, free 0.70 ng/dL ferritin, serum 130.1 ng/mL creatinine, serum 0.8 mg/dL carbon dioxide, venous blood 30.0 mmol/L Clinical Lists Update: CBC,CMP,Chol,Trig,TSH,Free T4,Ferritin,HgA1c - Hematology erythrocyte (RBC) count 4.61 10*6/mm3 leukocyte count, blood 6.1 10*3/mm3 mean corpuscular volume, RBC 97 fL red blood cell distribution width 13.6 % hemoglobin, blood 14.3 g/dL platelet count 202 10*3/mm3 hematocrit, blood 45 % Clinical Lists Update: CBC,CMP,FLP,TSH,Free T4,HgA1c - Chemistry Estimated Glomerular Filtration Rate (calc) 82 mL/min/1.73m2 glucose, plasma fasting 131 mg/dL cholesterol/HDL ratio, serum 3.0 anion gap, serum sodium, serum 139 mmol/L triglyceride, serum, fasting 74 mg/dL bilirubin, serum, total 0.5 mg/dL alanine aminotransferase (SGPT), serum 113 U/L aspartate aminotransferase (SGOT), serum 68 U/L protein, total, serum 7.0 g/dL potassium, serum 3.8 mmol/L LDL cholesterol, serum 54 mg/dL thyroid stimulating hormone, serum 4.29 u[iU]/mL hemoglobin A1C, blood, as % of total hemoglobin 6.3 % HDL cholesterol, serum 34.0 mg/dL thyroxine, serum, free 0.82 ng/dL bilirubin, serum, direct 0.1 mg/dL creatinine, serum 0.8 mg/dL carbon dioxide, venous blood 27.0 mmol/L cholesterol, serum 103 mg/dL chloride, serum 105 mmol/L calcium, serum 8.7 mg/dL urea nitrogen, blood 10 mg/dL alkaline phosphatase, serum 89 U/L albumin, serum 4.5 g/dL Clinical Lists Update: CBC,CMP,FLP,TSH,Free T4,HgA1c - Hematology leukocyte count, blood 4.5 10*3/mm3 erythrocyte (RBC) count 4.38 10*6/mm3 mean corpuscular volume, RBC 94 fL platelet count 182 10*3/mm3 red blood cell distribution width 13.8 % hematocrit, blood 41 % hemoglobin, blood 12.9 g/dL Clinical Lists Update: CBC,CMP,FLP,TSH,Free T4,HgA1c,Ferritin, Microalbumin - Chemistry aspartate aminotransferase (SGOT), serum 59 U/L protein, total, serum 6.8 g/dL potassium, serum 4.0 mmol/L LDL cholesterol, serum 52 mg/dL thyroid stimulating hormone, serum 1.29 u[iU]/mL HDL cholesterol, serum 45.0 mg/dL thyroxine, serum, free 1.08 ng/dL ferritin, serum 124.4 ng/mL creatinine, serum 0.8 mg/dL carbon dioxide, venous blood 26.0 mmol/L cholesterol, serum 114 mg/dL chloride, serum 104 mmol/L calcium, serum 9.2 mg/dL urea nitrogen, blood 11 mg/dL alkaline phosphatase, serum 123 U/L albumin, serum 4.2 g/dL alanine aminotransferase (SGPT), serum 135 U/L bilirubin, serum, total 0.4 mg/dL triglyceride, serum, fasting 84 mg/dL sodium, serum 140 mmol/L anion gap, serum 14 cholesterol/HDL ratio, serum 2.5 Estimated Glomerular Filtration Rate (calc) 81 mL/min/1.73m2 glucose, plasma fasting 103 mg/dL Clinical Lists Update: CBC,CMP,FLP,TSH,Free T4,HgA1c,Ferritin, Microalbumin - Hematology mean corpuscular volume, RBC 96 fL erythrocyte (RBC) count 4.77 10*6/mm3 red blood cell distribution width 14.3 % platelet count 220 10*3/mm3 leukocyte count, blood 10.3 10*3/mm3 hemoglobin, blood 14.6 g/dL hematocrit, blood 46 % Clinical Lists Update: CBC,CMP,FLP,TSH,Free T4,HgA1c,Ferritin, Microalbumin - Urinalysis microalbumin, urine, semiquantitative 0.4 mg/dL Office Visit: Dr Landers's Check Up: Established Patient Visit - Chemistry hemoglobin A1C, blood, as % of total hemoglobin 6.1 %
--- OUTSIDE RECORDS SUMMARY | 2016-07-05 04:15 | XMS REPORT | Clinical Summary ---
Author Author tatyana lechuga DO, [place] [address] Phone Unavailable Allergies, Adverse Reactions, Alerts Allergy [...] Provider Patient Instruction EFFEXOR XR 37.5 MG [id number] 1 PO daily VENLAFAXINE HCL 03068212163 Active Lindsey Landers SYNTHROID 0.05 MG TAB 1 PO Daily LEVOTHYROXINE SODIUM 87330457462 Active Lindsey Landers PREMPRO 0.3-1.5 MG TABS 1 PO daily CONJ ESTROG-MEDROXYPROGEST IFEANYI 89608390487 Active Lindsey Landers METFORMIN HCL 500 MG TABS 1 PO BID METFORMIN HCL 78693309322 Active Lindsey Landers Vital Signs Date Name Value Unit [...] cholesterol, serum 124 mg/dL anion gap, serum 11 sodium, serum 141 mmol/L triglyceride, serum, fasting [...] cholesterol/HDL ratio, serum 3.0 anion gap, serum 11 sodium, serum 139 mmol/L triglyceride, serum, fasting [...]
--- OUTSIDE RECORDS SUMMARY | 2016-07-05 04:15 | XMS REPORT | Clinical Summary ---
Author Author tatyana lechuga DO, [place] [address] Phone Unavailable Allergies, Adverse Reactions, Alerts Allergy [...] UNSPECIFIED TYPE, UNCONTROLLED HYPOTHYROIDISM, PRIMARY 244.9 Active Lindesy Landers UNSPECIFIED HYPOTHYROIDISM Medication List Medication Instructions Start Date Stop Date Generic Name NDC Status Provider Patient Instruction EFFEXOR XR 37.5 MG [id number] 1 PO daily VENLAFAXINE HCL 24525501482 Active Leanne Rawls SYNTHROID 0.05 MG TAB 1 PO Daily LEVOTHYROXINE SODIUM 69040285837 Active Lindsey Landers Vital Signs Date Name Value Unit Range Description blood pressure, diastolic 78 mm[Hg] BP mtz blood pressure, systolic 138 mm[Hg] BP sys pulse rate E&M 80 /min Heart rate respiratory rate E&M 14 /min Respiratory rate weight E&M 160 [lb_av] Weight Measured blood pressure, diastolic 58 mm[Hg] BP mtz blood pressure, systolic 118 mm[Hg] BP sys pulse rate E&M 74 /min Heart rate respiratory rate E&M 14 /min Respiratory rate temperature E&M 98.6 [degF] Bdy temp weight E&M 164 [lb_av] Weight Measured Diagnostic Results Date Name Value Unit Range Description Clinical Lists Update: CBC,CMP,FLP,TSH,Free T4,HgA1c - Chemistry hemoglobin A1C, blood, as % of total hemoglobin 6.3 % anion gap, serum 11 alkaline phosphatase, serum 89 U/L albumin, serum 4.5 g/dL HDL cholesterol, serum 34.0 mg/dL glucose, plasma fasting 131 mg/dL Estimated Glomerular Filtration Rate (calc) 82 mL/min/1.73m2 creatinine, serum 0.8 mg/dL carbon dioxide, venous blood 27.0 mmol/L cholesterol, serum 103 mg/dL cholesterol/HDL ratio, serum 3.0 chloride, serum 105 mmol/L calcium, serum 8.7 mg/dL urea nitrogen, blood 10 mg/dL bilirubin, serum, total 0.5 mg/dL bilirubin, serum, direct 0.1 mg/dL LDL cholesterol, serum 54 mg/dL thyroid stimulating hormone, serum 4.29 u[iU]/mL triglyceride, serum, fasting 74 mg/dL thyroxine, serum, free 0.82 ng/dL sodium, serum 139 mmol/L alanine aminotransferase (SGPT), serum 113 U/L aspartate aminotransferase (SGOT), serum 68 U/L protein, total, serum 7.0 g/dL potassium, serum 3.8 mmol/L Clinical Lists Update: CBC,CMP,FLP,TSH,Free T4,HgA1c - Hematology mean corpuscular volume, RBC 94 fL hematocrit, blood 41 % leukocyte count, blood 4.5 10*3/mm3 platelet count 182 10*3/mm3 hemoglobin, blood 12.9 g/dL red blood cell distribution width 13.8 % erythrocyte (RBC) count 4.38 10*6/mm3 Clinical Lists Update: CBC,CMP,FLP,TSH,Free T4,HgA1c,Ferritin, Microalbumin - Chemistry ferritin, serum 124.4 ng/mL calcium, serum 9.2 mg/dL albumin, serum 4.2 g/dL thyroid stimulating hormone, serum 1.29 u[iU]/mL carbon dioxide, venous blood 26.0 mmol/L urea nitrogen, blood 11 mg/dL Estimated Glomerular Filtration Rate (calc) 81 mL/min/1.73m2 bilirubin, serum, total 0.4 mg/dL HDL cholesterol, serum 45.0 mg/dL creatinine, serum 0.8 mg/dL anion gap, serum 14 LDL cholesterol, serum 52 mg/dL triglyceride, serum, fasting 84 mg/dL alkaline phosphatase, serum 123 U/L potassium, serum 4.0 mmol/L chloride, serum 104 mmol/L protein, total, serum 6.8 g/dL glucose, plasma fasting 103 mg/dL aspartate aminotransferase (SGOT), serum 59 U/L cholesterol/HDL ratio, serum 2.5 thyroxine, serum, free 1.08 ng/dL cholesterol, serum 114 mg/dL sodium, serum 140 mmol/L alanine aminotransferase (SGPT), serum 135 U/L Clinical Lists Update: CBC,CMP,FLP,TSH,Free T4,HgA1c,Ferritin, Microalbumin - Hematology erythrocyte (RBC) count 4.77 10*6/mm3 hemoglobin, blood 14.6 g/dL red blood cell distribution width 14.3 % platelet count 220 10*3/mm3 mean corpuscular volume, RBC 96 fL hematocrit, blood 46 % leukocyte count, blood 10.3 10*3/mm3 Clinical Lists Update: CBC,CMP,FLP,TSH,Free T4,HgA1c,Ferritin, Microalbumin - Urinalysis microalbumin, urine, semiquantitative 0.4 mg/dL
--- OUTSIDE RECORDS SUMMARY | 2016-07-05 04:15 | XMS REPORT | Clinical Summary ---
Author Author tatyana lechuga DO, [place] [address] Phone Unavailable Allergies, Adverse Reactions, Alerts Allergy [...] Provider Patient Instruction EFFEXOR XR 37.5 MG [id number] 1 PO daily VENLAFAXINE HCL 03542707070 Active Leanne Rawls SYNTHROID 0.05 MG TAB 1 PO Daily LEVOTHYROXINE SODIUM 88093360930 Active Lindsey Landers Vital Signs Date Name Value Unit Range Description blood pressure, diastolic 70 mm[Hg] BP mtz blood pressure, systolic 125 mm[Hg] BP sys pulse rate E&M 80 /min Heart rate respiratory rate E&M 14 /min Respiratory rate weight E&M 165 [lb_av] Weight Measured [...] 82 mL/min/1.73m2 glucose, plasma fasting 131 mg/dL albumin, serum 4.5 g/dL alkaline phosphatase, serum 89 U/L urea nitrogen, blood 10 mg/dL calcium, serum 8.7 mg/dL chloride, serum 105 mmol/L cholesterol, serum 103 mg/dL cholesterol/HDL ratio, serum 3.0 anion gap, [...] mg/dL carbon dioxide, venous blood 27.0 mmol/L Clinical Lists Update: CBC,CMP,FLP,TSH,Free T4,HgA1c - Hematology red blood cell distribution width 13.8 % hemoglobin, blood 12.9 g/dL platelet count 182 10*3/mm3 erythrocyte (RBC) count 4.38 10*6/mm3 leukocyte count, blood 4.5 10*3/mm3 mean corpuscular volume, RBC 94 fL hematocrit, blood 41 % Clinical Lists Update: CBC,CMP,FLP,TSH,Free T4,HgA1c,Ferritin, Microalbumin - Chemistry Estimated Glomerular Filtration Rate (calc) 81 mL/min/1.73m2 glucose, plasma fasting 103 mg/dL cholesterol/HDL ratio, serum 2.5 anion gap, serum 14 sodium, serum 140 mmol/L triglyceride, serum, fasting 84 mg/dL bilirubin, serum, total 0.4 mg/dL alanine aminotransferase (SGPT), serum 135 U/L aspartate aminotransferase (SGOT), serum 59 U/L protein, [...] serum 123 U/L albumin, serum 4.2 g/dL Clinical Lists Update: CBC,CMP,FLP,TSH,Free T4,HgA1c,Ferritin, Microalbumin - Hematology erythrocyte (RBC) count 4.77 10*6/mm3 hematocrit, blood 46 % red blood cell distribution width 14.3 % mean corpuscular volume, RBC 96 fL leukocyte count, blood 10.3 10*3/mm3 platelet count 220 10*3/mm3 hemoglobin, blood 14.6 g/dL Clinical Lists Update: CBC,CMP,FLP,TSH,Free T4,HgA1c,Ferritin, Microalbumin - Urinalysis microalbumin, urine, semiquantitative 0.4 mg/dL Office Visit: Dr Landers's Check Up: Established Patient Visit - Chemistry hemoglobin A1C, blood, as % of total hemoglobin 6.1 %
--- OUTSIDE RECORDS SUMMARY | 2016-07-05 04:15 | XMS REPORT | Clinical Summary ---
Author Author tatyana lechuga DO, [place] [address] Phone Unavailable Allergies, Adverse Reactions, Alerts Allergy Name Reaction Description Start Date Severity Status Provider No Known Allergies Cande Main Conditions or Problems Problem Name Problem Code [...] Provider Patient Instruction EFFEXOR XR 37.5 MG [id number] 1 PO daily VENLAFAXINE HCL 81741747164 Active Lindsey Landers SYNTHROID 0.05 MG TAB 1 PO Daily LEVOTHYROXINE SODIUM 36554536962 Active Lindsey Landers PREMPRO 0.3-1.5 MG TABS 1 PO daily CONJ ESTROG-MEDROXYPROGEST IFEANYI 96859604051 Active Lindsey Arthur Landers METFORMIN HCL 500 MG TABS 1 PO BID METFORMIN HCL 21751191478 Active Lindsey Hirschner Vital Signs Date Name Value Unit Range Description blood pressure, diastolic 78 mm[Hg] BP mtz blood pressure, systolic 118 mm[Hg] BP sys pulse rate E&M 72 /min Heart rate respiratory rate E&M 14 /min Resp rate temperature E&M 98.6 [degF] Body temperature weight E&M 166 [lb_av] Weight Measured blood pressure, diastolic 70 mm[Hg] BP mtz [...]
--- OUTSIDE RECORDS SUMMARY | 2016-07-05 04:15 | XMS REPORT | Clinical Summary ---
Author Author tatyana lechuga DO, [place] [address] Phone Unavailable Allergies, Adverse Reactions, Alerts Allergy [...] Provider Patient Instruction EFFEXOR XR 37.5 MG [id number] 1 PO daily VENLAFAXINE HCL 57940428589 Active Lindsey Landers SYNTHROID 0.05 MG TAB 1 PO Daily LEVOTHYROXINE SODIUM 76438793381 Active Lindsey Landers PREMPRO 0.3-1.5 MG TABS 1 PO daily CONJ ESTROG-MEDROXYPROGEST IFEANYI 67723781967 Active Lindsey Arthur Landers METFORMIN HCL 500 MG TABS 1 PO BID METFORMIN HCL 91166770718 Active Lindsey Hirschner Vital Signs Date Name [...]
--- OUTSIDE RECORDS SUMMARY | 2016-07-05 04:16 | XMS REPORT | Clinical Summary ---
Author Author tatyana lechuga DO, [place] [address] Phone Unavailable Allergies, Adverse Reactions, Alerts Allergy [...] Provider Patient Instruction EFFEXOR XR 37.5 MG [id number] 1 PO daily VENLAFAXINE HCL 24446837222 Active Lindsey Landers SYNTHROID 0.05 MG TAB 1 PO Daily LEVOTHYROXINE SODIUM 07903388685 Active Lindsey Landers PREMPRO 0.3-1.5 MG TABS 1 PO daily CONJ ESTROG-MEDROXYPROGEST IFEANYI 55488716759 Active Lindsey Landers METFORMIN HCL 500 MG TABS 1 PO BID METFORMIN HCL 77099544462 Active Lindsey Landers Vital Signs Date Name [...]
--- OUTSIDE RECORDS SUMMARY | 2016-07-05 04:16 | XMS REPORT | Clinical Summary ---
Author Author tatyana lechuga DO, [place] [address] Phone Unavailable Allergies, Adverse Reactions, Alerts Allergy [...] Provider Patient Instruction EFFEXOR XR 37.5 MG [id number] 1 PO daily VENLAFAXINE HCL 05931024513 Active Leanne Rawls SYNTHROID 0.05 MG TAB 1 PO Daily LEVOTHYROXINE SODIUM 75969727347 Active Lindsey Landers Vital Signs Date Name [...]
--- OUTSIDE RECORDS SUMMARY | 2016-07-05 04:16 | XMS REPORT | Clinical Summary ---
Author Author User, [employer] Lindsey Landers DO, FACP Address Unknown Phone Allergies, Adverse Reactions, Alerts Allergy Name Reaction Description Start Date Severity Status Provider No Known Allergies Cande Main Conditions or Problems Problem Name Problem Code Onset Date Status Entry Date Provider Comment Standard Description Annotate FATIGUE 780.79 Resolved Lindsey Landers Other malaise and fatigue WELL WOMAN V70.0 Active Lindsey Landers Routine general medical examination at a health care facility ANEMIA NOS 285.9 Resolved Lindsey Landers Anemia, unspecified SINUSITIS, SPHENOIDAL, ACUTE 461.3 Resolved Lindsey Landers Acute sphenoidal sinusitis COUGH 786.2 Resolved Lindsey Landers Cough ANEMIA NOS 285.9 Active Lindsey Landers Anemia, unspecified WEIGHT GAIN, ABNORMAL 783.1 Active Lindsey Landers Abnormal weight gain ENCOUNTER FOR LONG-TERM USE OF OTHER MEDICATIONS V58.69 Resolved Lindsey Landers Long-term (current) use of other medications LIVER FUNCTION TESTS, ABNORMAL 794.8 Active Lindsey Landers Nonspecific abnormal results of function study of liver OTHER NONSPECIFIC ABNORMAL SERUM ENZYME LEVELS 790.5 Active 2011 Leanne Rawls Other nonspecific abnormal serum enzyme levels HYPERGLYCEMIA, MILD 790.6 Active Lindsey Landers Other abnormal blood chemistry OTHER HEMOCHROMATOSIS 275.03 Active Lindsey Landers Other hemochromatosis 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 Lindsey Landers Osteoarthrosis, generalized, involving hand DIABETES MELLITUS, NONINSULIN DEPENDENT (NIDDM) 250.02 Active Lindsey Landers Diabetes mellitus without mention of complication, type II or unspecified type, uncontrolled HYPOTHYROIDISM, PRIMARY 244.9 Active Lindsey Landers Unspecified hypothyroidism OTITIS EXTERNA 380.10 Inactive Lindsey Landers Infective otitis externa, unspecified Medication List Medication Instructions Start Date Stop Date Generic Name NDC Status Provider Patient Instruction METFORMIN HCL 500 MG TABS 1 PO BID METFORMIN HCL 00800529670 Active Lindsey Landers PREMPRO 0.3-1.5 MG TABS 1 PO daily CONJ ESTROG-MEDROXYPROGEST IFEANYI 67933107141 Active Lindsey Landers SYNTHROID 0.05 MG TAB 1 PO Daily LEVOTHYROXINE SODIUM 97952468220 Active Leanne Rawls [id number] (OT) SUSP 2 drops left ear QID [id number] SUSP 51105493863 No Longer Active Lindsey Landers AMOXICILLIN 500 MG CAP 1 PO TID AMOXICILLIN 27552677974 No Longer Active Lindsey BARRY NASAL SPRAY (DEXAMETHASONE, GENTAMICIN, SALINE) 2 puffs each nostril TID for [address] BARRY NASAL SPRAY ( DEXAMETHASONE, GENTAMICIN, SALINE) No Longer Active Lindsey Landers LEVAQUIN 500 MG TAB 1 PO QD LEVOFLOXACIN 22977185250 No Longer Active Lindsey Landers AUGMENTIN 500-125 MG TAB 1 PO BID AMOXICILLIN-POT CLAVULANATE 27784997439 No Longer Active Lindsey BARRY NASAL SPRAY (DEXAMETHASONE, GENTAMICIN, SALINE) 2 puffs each nostril TID for [address] BARRY NASAL SPRAY ( DEXAMETHASONE, GENTAMICIN, SALINE) No Longer Active Lindsey Landers EFFEXOR XR 37.5 MG [id number] 1 PO daily VENLAFAXINE HCL 12230674058 Active Leanne Rawls Vital Signs Date Name Value Unit Range Description blood pressure, diastolic - 8462-4 70 mm[Hg] BP mtz blood pressure, systolic - 8480-6 130 mm[Hg] BP sys pulse rate E&M - 8867-4 70 /min Heart rate respiratory rate E&M - 9279-1 14 /min Resp rate weight E&M - 3141-9 160 [lb_av] Weight Measured blood pressure, diastolic - 8462-4 78 mm[Hg] BP mtz blood pressure, systolic - 8480-6 118 mm[Hg] BP sys pulse rate E&M - 8867-4 72 /min Heart rate respiratory rate E&M - 9279-1 14 /min Resp rate temperature E&M 98.6 [degF] Body temperature weight E&M - 3141-9 166 [lb_av] Weight Measured Diagnostic Results Date Name Value Unit Range Description Clinical Lists Update: CBC,CMP,Chol,Trig,TSH,Free T4,Ferritin,HgA1c - Chemistry albumin, serum 4.3 g/dL Estimated Glomerular Filtration Rate (calc) 79 mL/min/1.73m2 urea nitrogen, blood 11 mg/dL calcium, serum 9.6 mg/dL chloride, serum 104 mmol/L cholesterol, serum 124 mg/dL carbon dioxide, venous blood 30.0 mmol/L creatinine, serum 0.8 mg/dL ferritin, serum 130.1 ng/mL thyroxine, serum, free 0.70 ng/dL hemoglobin A1C, blood, as % of total hemoglobin 6.1 % thyroid stimulating hormone, serum 2.93 u[iU]/mL potassium, serum 4.1 mmol/L protein, total, serum 7.0 g/dL aspartate aminotransferase (SGOT), serum 60 U/L alanine aminotransferase (SGPT), serum 108 U/L bilirubin, serum, total 0.5 mg/dL triglyceride, serum, fasting 80 mg/dL sodium, serum 141 mmol/L anion gap, serum 11 glucose, plasma fasting 160 mg/dL alkaline phosphatase, serum 108 U/L Clinical Lists Update: CBC,CMP,Chol,Trig,TSH,Free T4,Ferritin,HgA1c - Hematology hematocrit, blood 45 % hemoglobin, blood 14.3 g/dL platelet count 202 10*3/mm3 erythrocyte (RBC) count 4.61 10*6/mm3 leukocyte count, blood 6.1 10*3/mm3 mean corpuscular volume, RBC 97 fL red blood cell distribution width 13.6 % Clinical Lists Update: CBC,CMP,FLP,TSH,FREE T4,FERRITIN,HgA1c,Microalbumin - Chemistry creatinine, serum 0.7 mg/dL urea nitrogen, blood 10 mg/dL thyroxine, serum, free 0.93 ng/dL HDL cholesterol, serum 41.0 mg/dL hemoglobin A1C, blood, as % of total hemoglobin 6.0 % thyroid stimulating hormone, serum 3.23 u[iU]/mL LDL cholesterol, serum 67 mg/dL potassium, serum 3.9 mmol/L protein, total, serum 6.6 g/dL aspartate aminotransferase (SGOT), serum 52 U/L alanine aminotransferase (SGPT), serum 82 U/L bilirubin, serum, total 0.5 mg/dL triglyceride, serum, fasting 63 mg/dL sodium, serum 138 mmol/L anion gap, serum 10 cholesterol/HDL ratio, serum, percent 3.0 glucose, plasma fasting 130 mg/dL Estimated Glomerular Filtration Rate (calc) 87 mL/min/1.73m2 ferritin, serum 127.5 ng/mL alkaline phosphatase, serum 90 U/L albumin, serum 4.3 g/dL calcium, serum 9.1 mg/dL chloride, serum 104 mmol/L cholesterol, serum 121 mg/dL carbon dioxide, venous blood 28.0 mmol/L Clinical Lists Update: CBC,CMP,FLP,TSH,FREE T4,FERRITIN,HgA1c,Microalbumin - Hematology hematocrit, blood 41.0 % hemoglobin, blood 13.3 g/dL platelet count 187 10*3/mm3 erythrocyte (RBC) count 4.43 10*6/mm3 leukocyte count, blood 5.9 10*3/mm3 mean corpuscular volume, RBC 93 fL red blood cell distribution width 13.3 % Clinical Lists Update: CBC,CMP,FLP,TSH,FREE T4,FERRITIN,HgA1c,Microalbumin - Urinalysis microalbumin, urine, semiquantitative 1.2 mg/dL Encounters Code Encounter Date Provider Facility CPT-82213 Ofc Vst, Est Level IV 17:27:44 CDT Lindsey Landers DO, FACP CPT-73762 Ofc Vst, Est Level IV 13:36:38 CDT Lindsey Landers DO, FACP CPT-61840 Ofc Vst, Est Level IV 12:55:28 SHE[employer]IL[employer] Lindsey Torres Landers, DO, FACP CPT-23457 Ofc Vst, Est Level III 14:28:01 CDT Lindsey Torres Landers, DO, FACP CPT-38190 Ofc Vst, Est Level III 14:21:37 SHE[employer] TAIL[employer] Lindsey Torres Anshul, DO, FACP CPT-18281 Ofc Vst, Est Level IV 11:19:23 CDT Lindsey Torres Landers, DO, FACP CPT-05192 Ofc Vst, Est Level V 15:19:24 SHE[employer] TAIL[employer] Lindsey Torres Landers, DO, FACP CPT-83227 Ofc Vst, Est Level III 14:43:51 CDT Lindsey Landers [facility] Procedures Code Procedure Name Date Entry Date Standard Description CPT-71735 Preventive, Est, (40-64) 16:46:17 SHEET TAILER CPT-28167 Preventive, Est, (40-64) 19:24:44 SHE[employer] TAILER CPT-18146 Handling of specimen from office to lab 16:21:52 CDT CPT-88190 Preventive, Est, (40-64) 16:21:52 CDT CPT-91478 Preventive, Est, (40-64) 16:10:49 SHE[employer] TAILER CPT-59028 Handling of specimen from office to lab 16:10:49 SHE[employer] TAILER CPT-12041 Preventive, Est, (40-64) 10:04:30 CDT CPT-18726 Handling of specimen from office to lab 10:04:30 CDT CPT-26907 Preventive, Est, (40-64) 13:19:26 CDT CPT-94491 Handling of specimen from office to lab 13:19:26 CDT
--- OUTSIDE RECORDS SUMMARY | 2016-07-05 04:17 | XMS REPORT | Clinical Summary ---
Author Author User, [employer] Lindsey Landers DO, FACP Address Unknown Phone [...] MG TABS 1 PO BID METFORMIN HCL 33995508220 Active Lindsey Landers PREMPRO 0.3-1.5 MG TABS 1 PO daily CONJ ESTROG-MEDROXYPROGEST IFEANYI 71122329394 Active Lindsey Landers SYNTHROID 0.05 MG TAB 1 PO Daily LEVOTHYROXINE SODIUM 02164467205 Active Lindsey Landers [id number]-PG (OT) SUSP 2 drops left ear QID [id number]-JB SUSP 87130934139 No Longer Active Lindsey Landers AMOXICILLIN 500 MG CAP 1 PO TID AMOXICILLIN 58438963517 No Longer Active Lindsey BARRY NASAL SPRAY (DEXAMETHASONE, GENTAMICIN, SALINE) 2 puffs each nostril TID for [address] BARRY NASAL SPRAY ( DEXAMETHASONE, GENTAMICIN, SALINE) No Longer Active Lindsey Landers LEVAQUIN 500 MG TAB 1 PO QD LEVOFLOXACIN 70674271563 No Longer Active Lindsey Landers AUGMENTIN 500-125 MG TAB 1 PO BID AMOXICILLIN-POT CLAVULANATE 23882437259 No Longer Active Lindsey BARRY NASAL SPRAY (DEXAMETHASONE, GENTAMICIN, SALINE) 2 puffs each nostril TID for [address] BARRY NASAL SPRAY ( DEXAMETHASONE, GENTAMICIN, SALINE) No Longer Active Lindsey Landers EFFEXOR XR 37.5 MG [id number] 1 PO daily VENLAFAXINE HCL 63628919639 Active Leanne Rawls Vital Signs Date Name Value Unit Range Description blood pressure, diastolic - 8462-4 78 mm[Hg] [...] count 202 10*3/mm3 hematocrit, blood 45 % Encounters Code Encounter Date Provider Facility CPT-80599 Ofc Vst, Est Level IV 13:36:38 CDT Lindsey Landers DO, FACP CPT-10499 Ofc Vst, Est Level IV 12:55:28 [facility] Lidnsey Landers DO, FACP CPT-88400 Ofc Vst, Est Level III 14:28:01 CDT Lindsey Landers DO, FACP CPT-44928 Ofc Vst, Est Level III 14:21:37 [facility] Lindsey Landers DO, FACP CPT-79879 Ofc Vst, Est Level IV 11:19:23 CDT Lindsey Landers DO, FACP CPT-64196 Ofc Vst, Est Level V 15:19:24 [facility] Lindsey Landers DO, FACP CPT-59857 Ofc Vst, Est Level III 14:43:51 CDT Lindsey [facility] OFFICE Procedures Code Procedure Name Date Entry Date Standard Description CPT-06370 Preventive, Est, (40-64) 16:46:17 [facility] CPT-44313 Preventive, Est, (40-64) 19:24:44 [facility] CPT-60327 Handling of specimen from office to lab 16:21:52 CDT CPT-55848 Preventive, Est, (40-64) 16:21:52 CDT CPT-62033 Preventive, Est, (40-64) 16:10:49 [facility] CPT-83286 Handling of specimen from office to lab 16:10:49 [facility] CPT-97583 Preventive, Est, (40-64) 10:04:30 CDT CPT-28138 Handling of specimen from office to lab 10:04:30 CDT CPT-74224 Preventive, Est, (40-64) 13:19:26 CDT CPT-99945 Handling of specimen from office to lab 13:19:26 CDT
--- OUTSIDE RECORDS SUMMARY | 2016-07-05 04:17 | XMS REPORT | Clinical Summary ---
Author Author tatyana lechuga DO, [place] [address] Phone Unavailable Allergies, Adverse Reactions, Alerts Allergy [...] Provider Patient Instruction EFFEXOR XR 37.5 MG [id number] 1 PO daily VENLAFAXINE HCL 47632739369 Active Leanne Rawls SYNTHROID 0.05 MG TAB 1 PO Daily LEVOTHYROXINE SODIUM 63546430676 Active Lindsey Landers Vital Signs Date Name [...]
--- OUTSIDE RECORDS SUMMARY | 2016-07-05 04:17 | XMS REPORT | Clinical Summary ---
Author Author tatyana lechuga DO, [place] [address] Phone Unavailable Allergies, Adverse Reactions, Alerts Allergy [...] Provider Patient Instruction EFFEXOR XR 37.5 MG [id number] 1 PO daily VENLAFAXINE HCL 86095405481 Active Leanne Rawls SYNTHROID 0.05 MG TAB 1 PO Daily LEVOTHYROXINE SODIUM 14511090919 Active Leanne Rawls PREMPRO 0.3-1.5 MG TABS 1 PO daily CONJ ESTROG-MEDROXYPROGEST IFEANYI 23908763124 Active Lindsey Arthur Landers Vital Signs Date [...]
--- OUTSIDE RECORDS SUMMARY | 2016-07-05 04:17 | XMS REPORT | Clinical Summary ---
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 HOLT'Brian NASAL SPRAY ( DEXAMETHASONE, GENTAMICIN, SALINE) No Longer Active Lindsey Landers LEVAQUIN 500 MG TAB 1 PO QD LEVOFLOXACIN 65865827560 No Longer Active Lindsey Landers AUGMENTIN 500-125 MG TAB 1 PO BID AMOXICILLIN-POT CLAVULANATE 49589319182 No Longer Active Lindsey HOLT'Brian NASAL SPRAY (DEXAMETHASONE, GENTAMICIN, SALINE) 2 puffs each nostril TID for [address] BARRY NASAL SPRAY ( DEXAMETHASONE, GENTAMICIN, SALINE) No Longer Active Lindsey Landers EFFEXOR XR 37.5 MG [id number] 1 PO daily VENLAFAXINE HCL 22236904801 Active Leanne Sinai Vital Signs Date Name Value Unit Range [...] Clinical Lists Update: CBC,CMP,Chol,Trig,TSH,Free T4,Ferritin,HgA1c - Chemistry potassium, serum 4.1 mmol/L thyroxine, serum, free 0.70 ng/dL alanine aminotransferase (SGPT), serum 108 U/L anion gap, serum 11 hemoglobin A1C, blood, as % of total hemoglobin 6.1 % ferritin, serum 130.1 ng/mL aspartate aminotransferase (SGOT), serum 60 U/L bilirubin, serum, total 0.5 mg/dL albumin, serum 4.3 g/dL thyroid stimulating hormone, serum 2.93 u[iU]/mL alkaline phosphatase, serum 108 U/L urea nitrogen, blood 11 mg/dL triglyceride, serum, fasting 80 mg/dL calcium, serum 9.6 mg/dL glucose, plasma fasting 160 mg/dL chloride, serum 104 mmol/L Estimated Glomerular Filtration Rate (calc) 79 mL/min/1.73m2 cholesterol, serum 124 mg/dL protein, total, serum 7.0 g/dL carbon dioxide, venous blood 30.0 mmol/L sodium, serum 141 mmol/L creatinine, serum 0.8 mg/dL Clinical Lists Update: CBC,CMP,Chol,Trig,TSH,Free T4,Ferritin,HgA1c - Hematology hematocrit, blood 45 % red blood cell distribution width 13.6 % hemoglobin, blood 14.3 g/dL mean corpuscular volume, RBC 97 fL platelet count 202 10*3/mm3 leukocyte count, blood 6.1 10*3/mm3 erythrocyte (RBC) count 4.61 10*6/mm3 Clinical Lists Update: CBC,CMP,FLP,TSH,FREE T4,FERRITIN,HgA1c,Microalbumin - Chemistry albumin, serum 4.3 g/dL alkaline phosphatase, serum 90 U/L urea nitrogen, blood 10 mg/dL calcium, serum 9.1 mg/dL chloride, serum 104 mmol/L cholesterol, serum 121 mg/dL carbon dioxide, venous blood 28.0 mmol/L creatinine, serum 0.7 mg/dL ferritin, serum 127.5 ng/mL thyroxine, serum, free 0.93 ng/dL HDL cholesterol, [...] Estimated Glomerular Filtration Rate (calc) 87 mL/min/1.73m2 Clinical Lists Update: CBC,CMP,FLP,TSH,FREE T4,FERRITIN,HgA1c,Microalbumin - Hematology erythrocyte (RBC) count 4.43 10*6/mm3 mean corpuscular volume, RBC 93 fL platelet count 187 10*3/mm3 red blood cell distribution width 13.3 % hemoglobin, blood 13.3 g/dL hematocrit, blood 41.0 % leukocyte count, blood 5.9 10*3/mm3 Clinical Lists Update: CBC,CMP,FLP,TSH,FREE T4,FERRITIN,HgA1c,Microalbumin - Urinalysis microalbumin, urine, semiquantitative 1.2 mg/dL Encounters Code Encounter Date Provider Facility CPT-13389 Ofc Vst, Est Level IV 17:27:44 CDT Lindsey Landers DO, FACKarthikeyan CPT-14830 Ofc Vst, Est Level IV 13:36:38 CDT Lindsey Landers DO, FACP CPT-53618 Ofc Vst, Est Level IV 12:55:28 CARPET TECHNIC[employer] Lindsey Hirschner, DO, FACP CPT-48140 Ofc Vst, Est Level III 14:28:01 CDT Lindsey Hirschner Lindsey Brian Anshul, DO, FACP CPT-24842 Ofc Vst, Est Level III 14:21:37 CARPET TECHNICIAN Lindsey Hirschner Lindsey Brian Anshul, DO, FACP CPT-98405 Ofc Vst, Est Level IV 11:19:23 CDT Lindsey Ivyi Brian Anshul DO, FACP CPT-11561 Ofc Vst, Est Level V 15:19:24 CARPET TECHNICIAN Lindsey Hirschner Lindseystephanie Landers, DO, FACP CPT-27360 Ofc Vst, Est Level III 14:43:51 CDT Lindsey Landers [facility] Procedures Code Procedure Name Date Entry Date Standard Description CPT-74865 Preventive, Est, (40-64) 16:46:17 CARPET TECHNICIAN CPT-78449 Preventive, Est, (40-64) 19:24:44 CARPET TECHNICIAN CPT-14248 Handling of specimen from office to lab 16:21:52 CDT CPT-82543 Preventive, Est, (40-64) 16:21:52 CDT CPT-30252 Preventive, Est, (40-64) 16:10:49 CARPET TECHNICIAN CPT-22264 Handling of specimen from office to lab 16:10:49 CARPET TECHNICIAN CPT-09765 Preventive, Est, (40-64) 10:04:30 CDT CPT-80289 Handling of specimen from office to lab 10:04:30 CDT CPT-98306 Preventive, Est, (40-64) 13:19:26 CDT CPT-77832 Handling of specimen from office to lab 13:19:26 CDT
--- OUTSIDE RECORDS SUMMARY | 2016-07-05 04:18 | XMS REPORT | Clinical Summary ---
Author Author User, [employer] Lindsey Landers DO, FACP Address Unknown Phone [...] MG TABS 1 PO BID METFORMIN HCL 85489697568 Active Lindsey Landers PREMPRO 0.3-1.5 MG TABS 1 PO daily CONJ ESTROG-MEDROXYPROGEST IFEANYI 60714682804 Active Lindsey Landers SYNTHROID 0.05 MG TAB 1 PO Daily LEVOTHYROXINE SODIUM 44331317041 Active Lindsey Landers IQBXEIRC-[id number]-WG (OT) SUSP 2 drops left ear QID WYMGGAXU-POQLATNVY-HD SUSP 76102398784 No Longer Active Lindsey Landers AMOXICILLIN 500 MG CAP 1 PO TID AMOXICILLIN 12309070801 No Longer Active Lindsey BARRY NASAL SPRAY (DEXAMETHASONE, GENTAMICIN, SALINE) 2 puffs each nostril TID for [address] BARRY NASAL SPRAY ( DEXAMETHASONE, GENTAMICIN, SALINE) No Longer Active Lindsey Landers LEVAQUIN 500 MG TAB 1 PO QD LEVOFLOXACIN 66471336476 No Longer Active Lindsey Landers AUGMENTIN 500-125 MG TAB 1 PO BID AMOXICILLIN-POT CLAVULANATE 16386005660 No Longer Active Lindsey BARRY NASAL SPRAY (DEXAMETHASONE, GENTAMICIN, SALINE) 2 puffs each nostril TID for [address] BARRY NASAL SPRAY ( DEXAMETHASONE, GENTAMICIN, SALINE) No Longer Active Lindsey Landers EFFEXOR XR 37.5 MG [id number]-[id number] 1 PO daily VENLAFAXINE HCL 66188866809 Active Leanne Rawls Vital Signs Date Name [...] mg/dL Encounters Code Encounter Date Provider Facility CPT-88838 Ofc Vst, Est Level IV 13:36:38 CDT Lindsey Landers DO, FACP CPT-41839 Ofc Vst, Est Level IV 12:55:28 REFINISH TECHNICIAN Lindsey Landers DO, FACP CPT-62110 Ofc Vst, Est Level III 14:28:01 CDT Lindsey Landers DO, FACP CPT-31584 Ofc Vst, Est Level III 14:21:37 REFINISH TECHNICIAN Lindsey Landers DO, FACP CPT-77156 Ofc Vst, Est Level IV 11:19:23 CDT Lindsey Landers DO, FACP CPT-20995 Ofc Vst, Est Level V 15:19:24 REFINISH TECHNICIAN Lindsey Landers, , FACP CPT-50199 Ofc Vst, Est Level III 14:43:51 CDT Lindsey [facility]INS OFFICE Procedures Code Procedure Name Date Entry Date Standard Description CPT-73129 Preventive, Est, (40-64) 16:46:17 REFINISH TECHNICIAN CPT-92928 Preventive, Est, (40-64) 19:24:44 REFINISH TECHNICIAN CPT-68473 Handling of specimen from office to lab 16:21:52 CDT CPT-73302 Preventive, Est, (40-64) 16:21:52 CDT CPT-57217 Preventive, Est, (40-64) 16:10:49 REFINISH TECHNICIAN CPT-25367 Handling of specimen from office to lab 16:10:49 REFINISH TECHNICIAN CPT-54948 Preventive, Est, (40-64) 10:04:30 CDT CPT-29553 Handling of specimen from office to lab 10:04:30 CDT CPT-25196 Preventive, Est, (40-64) 13:19:26 CDT CPT-08834 Handling of specimen from office to lab 13:19:26 CDT
--- OUTSIDE RECORDS SUMMARY | 2016-07-05 04:18 | XMS REPORT | Clinical Summary ---
Author Author User, [employer] Lindsey Landers DO, FACP Address Unknown Phone [...] MG TABS 1 PO BID METFORMIN HCL 79111480633 Active Lindsey Landers PREMPRO 0.3-1.5 MG TABS 1 PO daily CONJ ESTROG-MEDROXYPROGEST IFEANYI 86764805731 Active Lindsey Landers SYNTHROID 0.05 MG TAB 1 PO Daily LEVOTHYROXINE SODIUM 14093676744 Active Lindsey Landers VLBTYJSD-MUVVOXUNQ-UR (OT) SUSP 2 drops left ear QID OIWIODUP-EDYNOQQES-PR SUSP 42651656920 No Longer Active Lindsey Landers AMOXICILLIN 500 MG CAP 1 PO TID AMOXICILLIN 28883596751 No Longer Active Lindsey BARRY NASAL SPRAY (DEXAMETHASONE, GENTAMICIN, SALINE) 2 puffs each nostril TID for [address] BARRY NASAL SPRAY ( DEXAMETHASONE, GENTAMICIN, SALINE) No Longer Active Lindsey Landers LEVAQUIN 500 MG TAB 1 PO QD LEVOFLOXACIN 33359029109 No Longer Active Lindsey Landers AUGMENTIN 500-125 MG TAB 1 PO BID AMOXICILLIN-POT CLAVULANATE 40298810459 No Longer Active Lindsey BARRY NASAL SPRAY (DEXAMETHASONE, GENTAMICIN, SALINE) 2 puffs each nostril TID for [address] BARRY NASAL SPRAY ( DEXAMETHASONE, GENTAMICIN, SALINE) No Longer Active Lindsey Landers EFFEXOR XR 37.5 MG [id number]-XWR 1 PO daily VENLAFAXINE HCL 15300212986 Active Leanne Herreratis Vital Signs Date Name Value Unit Range [...] mg/dL Encounters Code Encounter Date Provider Facility CPT-70331 Ofc Vst, Est Level IV 17:27:44 CDT Lindsey Landers DO, FACKarthikeyan CPT-02494 Ofc Vst, Est Level IV 13:36:38 CDT Lindsey Landers DO, FACP CPT-04857 Ofc Vst, Est Level IV 12:55:28 CHRONOMETER ASSEMBLER Lindsey Landers, DO, FACP CPT-86964 Ofc Vst, Est Level III 14:28:01 CDT Lindsey Hirschner, DO, FACP CPT-85815 Ofc Vst, Est Level III 14:21:37 CHRONOMETER ASSEMBLER Lindsey Torres Landers, DO, FACP CPT-52486 Ofc Vst, Est Level IV 11:19:23 CDT Lindsey Landers, DO, FACP CPT-48916 Ofc Vst, Est Level V 15:19:24 CHRONOMETER ASSEMBLER Lindsey Landers, DO, FACP CPT-46218 Ofc Vst, Est Level III 14:43:51 CDT Lindsey Landers [facility] OFFICE Procedures Code Procedure Name Date Entry Date Standard Description CPT-66648 Preventive, Est, (40-64) 16:46:17 CHRONOMETER ASSEMBLER CPT-37333 Preventive, Est, (40-64) 19:24:44 CHRONOMETER ASSEMBLER CPT-73113 Handling of specimen from office to lab 16:21:52 CDT CPT-63775 Preventive, Est, (40-64) 16:21:52 CDT CPT-61871 Preventive, Est, (40-64) 16:10:49 CHRONOMETER ASSEMBLER CPT-73098 Handling of specimen from office to lab 16:10:49 CHRONOMETER ASSEMBLER CPT-70488 Preventive, Est, (40-64) 10:04:30 CDT CPT-98491 Handling of specimen from office to lab 10:04:30 CDT CPT-28023 Preventive, Est, (40-64) 13:19:26 CDT CPT-63352 Handling of specimen from office to lab 13:19:26 CDT
== END 2016-07-01 11:50 | disposition home or self-care (01) ==
LOC: DELPENDDIS → SDC 05:49
PROVIDERS: ATTEND Surgery
DX: K82.4 Cholesterolosis of gallbladder (principal); K13.0 Diseases of lips; Z11.2 Encounter for screening for other bacterial diseases
CPT/HCPCS: 84703; 87081; 88304; 94664

== ENCOUNTER → 2016-10-19 | Outpatient (RCR) | payer BC ==
[2016-07-21 08:59] LABS: BASOPHILS % (AUTO) 0 % (0-10); EOSINOPHILS # (AUTO) 0.2 10^3/uL (0.0-0.3); EOSINOPHILS % (AUTO) 4 % (0-10); LYMPHOCYTES # (AUTO) 1.5 X 10^3 (1.0-4.0); LYMPHOCYTES % (AUTO) 28 % (12-44); MEAN CORPUSCULAR HEMOGLOBIN 29 PG (25-34); MEAN CORPUSCULAR HGB CONC 34 G/DL (32-36); MEAN CORPUSCULAR VOLUME 86 FL (80-99); MEAN PLATELET VOLUME 10.6 FL (7.4-10.4); MONOCYTES # (AUTO) 0.4 X 10^3 (0.0-1.0); MONOCYTES % (AUTO) 7 % (0-12); NEUTROPHILS # (AUTO) 3.3 X 10^3 (1.8-7.8); NEUTROPHILS % (AUTO) 61 % (42-75); PLATELET COUNT 244 10^3/uL (130-400); RED BLOOD COUNT 4.41 10^6/uL (4.35-5.85); RED CELL DISTRIBUTION WIDTH 13.7 % (10.0-14.5); WHITE BLOOD COUNT 5.4 10^3/uL (4.3-11.0)
[2016-07-21 09:40] LABS: ALANINE AMINOTRANSFERASE 53 U/L (0-55); ALBUMIN 4.2 G/DL (3.2-4.5); ANION GAP 13 MMOL/L (5-14); ASPARTATE AMINO TRANSFERASE 43 U/L (5-34); BILIRUBIN,TOTAL 0.3 MG/DL (0.1-1.0); BLOOD UREA NITROGEN 9 MG/DL (7-18); BUN/CREATININE RATIO 12; CALCIUM 9.5 MG/DL (8.5-10.1); CARBON DIOXIDE 24 MMOL/L (21-32); CHLORIDE 106 MMOL/L (98-107); CREATININE SERUM 0.77 MG/DL (0.60-1.30); GFR ESTIMATED > 60; GLUCOSE 111 MG/DL (70-105); POTASSIUM 4.1 MMOL/L (3.6-5.0); SODIUM 143 MMOL/L (135-145); TOTAL PROTEIN 7.1 G/DL (6.4-8.2)
[~2016-10-19] MED LIST changes: +HYDR-3812 PO
== END | disposition home or self-care (01) ==
LOC: ONC 07-21 08:24
PROVIDERS: ATTEND Internal Medicine Hematology & Oncology
DX: D64.9 Anemia, unspecified; Z79.899 Other long term (current) drug therapy; E03.9 Hypothyroidism, unspecified; E11.9 Type 2 diabetes mellitus without complications
CPT/HCPCS: 36415; 80053; 82728; 83540; 85025; 99213

== ENCOUNTER 2016-10-22 14:56 | Outpatient (RCR) | payer BC ==
[2016-10-19 09:24] LABS: BASOPHILS % (AUTO) 1 % (0-10); EOSINOPHILS # (AUTO) 0.2 10^3/uL (0.0-0.3); EOSINOPHILS % (AUTO) 3 % (0-10); LYMPHOCYTES # (AUTO) 1.6 X 10^3 (1.0-4.0); LYMPHOCYTES % (AUTO) 29 % (12-44); MEAN CORPUSCULAR HEMOGLOBIN 30 PG (25-34); MEAN CORPUSCULAR HGB CONC 34 G/DL (32-36); MEAN CORPUSCULAR VOLUME 88 FL (80-99); MEAN PLATELET VOLUME 10.6 FL (7.4-10.4); MONOCYTES # (AUTO) 0.3 X 10^3 (0.0-1.0); MONOCYTES % (AUTO) 6 % (0-12); NEUTROPHILS # (AUTO) 3.4 X 10^3 (1.8-7.8); NEUTROPHILS % (AUTO) 62 % (42-75); PLATELET COUNT 208 10^3/uL (130-400); RED BLOOD COUNT 4.41 10^6/uL (4.35-5.85); RED CELL DISTRIBUTION WIDTH 13.5 % (10.0-14.5); WHITE BLOOD COUNT 5.6 10^3/uL (4.3-11.0)
[2016-10-19 10:03] LABS: ALANINE AMINOTRANSFERASE 71 U/L (0-55); ALBUMIN 4.1 GM/DL (3.2-4.5); ANION GAP 8 MMOL/L (5-14); ASPARTATE AMINO TRANSFERASE 52 U/L (5-34); BILIRUBIN,TOTAL 0.5 MG/DL (0.1-1.0); BLOOD UREA NITROGEN 10 MG/DL (7-18); BUN/CREATININE RATIO 12; CALCIUM 9.3 MG/DL (8.5-10.1); CARBON DIOXIDE 26 MMOL/L (21-32); CHLORIDE 106 MMOL/L (98-107); CREATININE SERUM 0.81 MG/DL (0.60-1.30); GFR ESTIMATED > 60; GLUCOSE 174 MG/DL (70-105); SODIUM 140 MMOL/L (135-145)
== END 2017-01-09 | disposition home or self-care (01) ==
LOC: ONC 14:56
PROVIDERS: ATTEND Internal Medicine Hematology & Oncology
DX: E83.118 Other hemochromatosis (principal); R94.5 Abnormal results of liver function studies; E03.9 Hypothyroidism, unspecified; E11.9 Type 2 diabetes mellitus without complications; I10 Essential (primary) hypertension; Z79.899 Other long term (current) drug therapy
CPT/HCPCS: 36415; 80053; 82728; 83540; 85025; 99213

== ENCOUNTER 2017-01-19 08:15 | Outpatient (RCR) | payer BC ==
[2017-01-19 08:31] LABS: BASOPHILS % (AUTO) 0 % (0-10); EOSINOPHILS # (AUTO) 0.2 10^3/uL (0.0-0.3); EOSINOPHILS % (AUTO) 5 % (0-10); LYMPHOCYTES # (AUTO) 1.1 X 10^3 (1.0-4.0); LYMPHOCYTES % (AUTO) 25 % (12-44); MEAN CORPUSCULAR HEMOGLOBIN 30 PG (25-34); MEAN CORPUSCULAR HGB CONC 34 G/DL (32-36); MEAN CORPUSCULAR VOLUME 88 FL (80-99); MEAN PLATELET VOLUME 11.1 FL (7.4-10.4); MONOCYTES # (AUTO) 0.2 X 10^3 (0.0-1.0); MONOCYTES % (AUTO) 4 % (0-12); NEUTROPHILS % (AUTO) 66 % (42-75); PLATELET COUNT 190 10^3/uL (130-400); RED BLOOD COUNT 4.33 10^6/uL (4.35-5.85); RED CELL DISTRIBUTION WIDTH 13.1 % (10.0-14.5); WHITE BLOOD COUNT 4.6 10^3/uL (4.3-11.0)
[2017-01-19 08:52] LABS: ALANINE AMINOTRANSFERASE 86 U/L (0-55); ALBUMIN 3.9 GM/DL (3.2-4.5); ANION GAP 7 MMOL/L (5-14); ASPARTATE AMINO TRANSFERASE 64 U/L (5-34); BILIRUBIN,TOTAL 0.4 MG/DL (0.1-1.0); BLOOD UREA NITROGEN 8 MG/DL (7-18); BUN/CREATININE RATIO 10; CALCIUM 9.2 MG/DL (8.5-10.1); CARBON DIOXIDE 27 MMOL/L (21-32); CHLORIDE 104 MMOL/L (98-107); GFR ESTIMATED > 60; GLUCOSE 223 MG/DL (70-105); POTASSIUM 3.7 MMOL/L (3.6-5.0); SODIUM 138 MMOL/L (135-145); TOTAL PROTEIN 6.9 GM/DL (6.4-8.2)
== END 2017-01-28 16:04 | disposition home or self-care (01) ==
LOC: ONC 08:15
PROVIDERS: ATTEND Internal Medicine Hematology & Oncology
DX: E83.118 Other hemochromatosis (principal); E03.9 Hypothyroidism, unspecified; E11.9 Type 2 diabetes mellitus without complications; I10 Essential (primary) hypertension; Z79.899 Other long term (current) drug therapy
CPT/HCPCS: 36415; 80053; 82728; 83540; 85025; 99213

== ENCOUNTER 2017-01-28 16:05 | Outpatient (RCR) | payer BC ==
[~2017-01-28 16:05] MED LIST changes: +ACHD5005 PO; -HYDR-3812 PO
== END 2017-04-28 | disposition home or self-care (01) ==
LOC: ONC 16:05
PROVIDERS: ATTEND Internal Medicine Hematology & Oncology
DX: E83.118 Other hemochromatosis (principal); E03.9 Hypothyroidism, unspecified; E11.9 Type 2 diabetes mellitus without complications; I10 Essential (primary) hypertension; Z79.899 Other long term (current) drug therapy

== ENCOUNTER 2017-04-03 18:15 | Emergency (ER) | payer BC ==
[2017-04-03 18:15] VITALS: BP 0/0
[~2017-04-03 18:15] MED LIST changes: -ACHD5005 PO; +HYDR-3812 PO
== END 2017-04-03 18:19 | disposition left against medical advice (07) ==
LOC: EDUNIT# 18:15 → ER 18:15
DX: T18.108A Unspecified foreign body in esophagus causing other injury, initial encounter (principal)
CPT/HCPCS: 99281

== ENCOUNTER → 2017-05-07 | Outpatient (CLI) | payer BC ==
[~2017-05-07] MED LIST changes: +ACHD5005 PO; -HYDR-3812 PO
--- NOTE | 2017-05-07 19:01 | Diagnostic Imaging Report ---
INDICATION: Routine screening. Comparison is made with prior exams from 05/06/2016 and 02/28/2015. The current study was also evaluated with a Computer Aided Detection (CAD) system. FINDINGS: Scattered parenchymal densities are noted bilaterally. The parenchymal pattern is stable. No dominant mass or malignant-appearing microcalcifications are seen. The axillae are unremarkable. IMPRESSION: No mammographic features suspicious for malignancy are identified. ACR BI-RADS Category 1: Negative. Result letter will be mailed to the patient. Note: At least 10% of breast cancer is not imaged by mammography. Dictated by: Dictated on workstation # [id number]
== END ==
LOC: RAD 09:35
PROVIDERS: ATTEND Internal Medicine
DX: Z12.31 Encounter for screening mammogram for malignant neoplasm of breast (principal)
CPT/HCPCS: 77067

== ENCOUNTER 2017-06-15 14:30 | Outpatient (CLI) | payer BC ==
[~2017-06-15] VITALS: Ht 160 cm; Wt 68.0 kg
== END 2017-06-15 15:43 ==
LOC: PREOP 14:30
PROVIDERS: ATTEND Surgery
DX: Z01.818 Encounter for other preprocedural examination (principal); R13.10 Dysphagia, unspecified; R12 Heartburn

== ENCOUNTER 2017-06-21 08:45 | Day surgery (SDC) | payer BC ==
[~2017-06-21] VITALS: Ht 160 cm; Wt 68.0 kg
[2017-06-21] MEDS ORDERED: NS IV 500 ML 500 ML IV PRN (09:03)
[2017-06-21] MEDS ORDERED: fentaNYL INJECTION 100 MCG/2 ML AMP IVP PRN (09:15)
[2017-06-21] MEDS ORDERED: HURRICAINE EXT TUBE (BENZOCAINE) XX PRN (09:15)
[2017-06-21 09:27] VITALS: BP 151/80
--- OUTSIDE RECORDS SUMMARY | 2017-06-21 10:58 | XMS REPORT | Continuity of Care Document ---
Author Author [facility] Address Unknown Phone Unavailable Allergies Active Description Code Type Severity Reaction Onset Reported/Identified Relationship to Patient Clinical Status Yes No Known Drug Allergies [id number] Drug Allergy Unknown N/A 05/28/2016 Medications There is no data. Problems Date Dx Coded Attending Type Code Diagnosis Diagnosed By 03/11/1553 KECIA CAMARENA, MADAY Couch Ot D64.9 ANEMIA, UNSPECIFIED 03/11/1553 MADAY MCDONNELL MD, Ot E03.9 HYPOTHYROIDISM, UNSPECIFIED 03/11/1553 MADAY MCDONNELL MD, Ot E11.9 TYPE 2 DIABETES MELLITUS WITHOUT COMPLIC 03/11/1553 KECIA CAMARENA, MADAY Couch Ot Z79.899 OTHER [facility] (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 THERAPY 04/26/2013 MASTERSON DO, CANDI K V04.81 FLU SHOT 07/17/2014 ELLIS DO, JUAN Ot V76.12 11/01/2014 ELLIS DO, JUAN Ot V76.12 12/31/2014 ELLIS DO, JUAN Ot V76.12 03/15/2015 ELLIS DO, JUAN Ot Z12.31 06/20/2015 MADAY MCDONNELL MD, Ot D64.9 06/25/2015 ELLIS DO, JUAN Ot V76.12 06/25/2015 ELLIS DO, JUAN Ot Z12.31 06/25/2015 KECIA CAMARENA, MADAY Couch Ot D64.9 06/25/2015 MADAY MCDONNELL MD, Ot R74.8 07/08/2015 MADAY MCDONNELL MD Ot R74.8 08/27/2015 MADAY MCDONNELL MD, Ot D64.9 ANEMIA, UNSPECIFIED 08/27/2015 MADAY MCDONNELL MD, Ot E03.9 HYPOTHYROIDISM, UNSPECIFIED 08/27/2015 MADAY MCDONNELL MD Ot E11.9 TYPE 2 DIABETES MELLITUS WITHOUT COMPLIC 08/27/2015 MADAY MCDONNELL MD, Ot E66.9 OBESITY, UNSPECIFIED 08/27/2015 KECIA CAMARENA, MADAY Couch Ot E83.118 OTHER HEMOCHROMATOSIS 08/27/2015 MADAY MCDONNELL MD Ot R94.5 ABNORMAL RESULTS OF LIVER FUNCTION STUDI 08/27/2015 MADAY MCDONNELL MD, Ot Z68.30 BODY MASS INDEX (BMI) 30.0-30.9, ADULT 08/27/2015 MADAY MCDONNELL MD, Ot Z79.899 OTHER [facility] (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 THERAPY 08/28/2015 MADAY MCDONNELL MD [...] 08/28/2015 MADAY MCDONNELL MD, Ot Z79.899 OTHER [facility] (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 THERAPY 09/04/2015 MADAY MCDONNELL MD [...] 12/31/2015 MADAY MCDONNELL MD Ot Z79.899 OTHER [facility] (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 THERAPY 01/20/2016 MADAY MCDONNELL MD Ot D64.9 ANEMIA, UNSPECIFIED 01/20/2016 MADAY MCDONNELL MD Ot E03.9 HYPOTHYROIDISM, UNSPECIFIED 01/20/2016 MADAY MCDONNELL MD Ot E11.9 TYPE 2 DIABETES MELLITUS WITHOUT COMPLIC 01/20/2016 MADAY MCDONNELL MD Ot Z79.899 OTHER [facility] (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 THERAPY 03/23/2016 MADAY MCDONNELL MD Ot D64.9 ANEMIA, UNSPECIFIED 03/23/2016 MADAY MCDONNELL MD Ot E03.9 HYPOTHYROIDISM, UNSPECIFIED 03/23/2016 MADAY MCDONNELL MD Ot E11.9 TYPE 2 DIABETES MELLITUS WITHOUT COMPLIC 03/23/2016 MADAY MCDONNELL MD Ot Z79.899 OTHER [facility] (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 THERAPY 04/22/2016 MADAY MCDONNELL MD Ot D64.9 ANEMIA, UNSPECIFIED 04/22/2016 MADAY MCDONNELL MD Ot E03.9 HYPOTHYROIDISM, UNSPECIFIED 04/22/2016 MADAY MCDONNELL MD Ot E11.9 TYPE 2 DIABETES MELLITUS WITHOUT COMPLIC 04/22/2016 MADAY MCDONNELL MD Ot Z79.899 OTHER [facility] (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 THERAPY 05/06/2016 JUAN ELLIS DO [...] 05/06/2016 MADAY MCDONNELL MD Ot Z79.899 OTHER [facility] (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 THERAPY 05/07/2016 MADAY MCDONNELL MD [...] 05/27/2016 MADAY MCDONNELL MD Ot Z79.899 OTHER [facility] (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 THERAPY 05/29/2016 JENN CAMARENA, VILLA Eddy Ot Z01.818 ENCOUNTER FOR OTHER PREPROCEDURAL EXAMIN 05/29/2016 JENN CAMARENA, VILLA Eddy Ot Z12.11 ENCOUNTER FOR SCREENING FOR MALIGNANT NE 06/01/2016 JENN CAMARENA, VILLA Eddy Ot Z12.11 ENCOUNTER FOR SCREENING FOR MALIGNANT NE 06/02/2016 VILLA BARAJAS MD Ot Z12.11 ENCOUNTER FOR SCREENING FOR MALIGNANT NE 06/04/2016 JENN CAMARENA, VILLA Eddy Ot Z12.11 ENCOUNTER FOR SCREENING FOR MALIGNANT NE 06/04/2016 JENN CAMARENA, VILLA Eddy Ot Z12.11 ENCOUNTER FOR SCREENING FOR MALIGNANT NE 06/09/2016 JUAN ELLIS DO Ot K82.4 CHOLESTEROLOSIS OF GALLBLADDER 06/09/2016 TOMMY ELLIS DOI Ot R10.84 GENERALIZED ABDOMINAL PAIN 06/18/2016 KECIA CAMARENA, MADAY Couch Ot D64.9 ANEMIA, UNSPECIFIED 06/18/2016 MADAY MCDONNELL MD Ot E03.9 HYPOTHYROIDISM, UNSPECIFIED 06/18/2016 MADAY MCDONNELL MD Ot E11.9 TYPE 2 DIABETES MELLITUS WITHOUT COMPLIC 06/18/2016 MADAY MCDONNELL MD Ot Z79.899 OTHER [facility] (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 THERAPY 06/19/2016 MADAY MCDONNELL MD Ot E03.9 HYPOTHYROIDISM, UNSPECIFIED 06/19/2016 MADAY MCDONNELL MD Ot E11.9 TYPE 2 DIABETES MELLITUS WITHOUT COMPLIC 06/19/2016 MADAY MCDONNELL MD Ot E83.118 OTHER HEMOCHROMATOSIS 06/19/2016 MADAY MCDONNELL MD Ot Z79.899 OTHER [facility] (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 THERAPY 06/25/2016 VILLA BARAJAS MD Ot K13.0 DISEASES OF LIPS 06/25/2016 VILLA BARAJAS MD Ot K82.4 CHOLESTEROLOSIS OF GALLBLADDER 06/25/2016 VILLA BARAJAS MD Ot Z01.818 ENCOUNTER FOR OTHER PREPROCEDURAL EXAMIN 06/25/2016 TOMMY ELLIS DOI Ot K82.4 CHOLESTEROLOSIS OF GALLBLADDER 06/25/2016 JUAN ELLIS DO Ot R10.84 GENERALIZED ABDOMINAL PAIN 06/26/2016 VILLA BARAJAS MD Ot K13.0 DISEASES OF LIPS 06/26/2016 VILLA BARAJAS MD Ot K82.4 CHOLESTEROLOSIS OF GALLBLADDER 06/26/2016 VILLA BARAJAS MD Ot Z01.818 ENCOUNTER FOR OTHER PREPROCEDURAL EXAMIN 07/01/2016 VILLA BARAJAS MD Ot K13.0 DISEASES OF LIPS 07/01/2016 VILLA BARAJAS MD Ot K82.4 CHOLESTEROLOSIS OF GALLBLADDER 07/01/2016 VILLA BARAJAS MD Ot Z11.2 ENCOUNTER FOR SCREENING FOR OTHER BACTER 07/02/2016 VILLA BARAJAS MD Ot K13.0 DISEASES OF LIPS 07/02/2016 VILLA BARAJAS MD Ot K82.4 CHOLESTEROLOSIS OF GALLBLADDER 07/02/2016 VILLA BARAJAS MD Ot Z11.2 ENCOUNTER FOR SCREENING FOR OTHER BACTER 07/07/2016 VILLA BARAJAS MD Ot K13.0 DISEASES OF LIPS 07/07/2016 VILLA BARAJAS MD Ot K82.4 CHOLESTEROLOSIS OF GALLBLADDER 07/07/2016 VILLA BARAJAS MD Ot Z11.2 ENCOUNTER FOR SCREENING FOR OTHER BACTER 07/09/2016 VILLA BARAJAS MD Ot K13.0 DISEASES OF LIPS 07/09/2016 VILLA BARAJAS MD Ot K82.4 CHOLESTEROLOSIS OF GALLBLADDER 07/09/2016 VILLA BARAJAS MD Ot Z11.2 ENCOUNTER FOR SCREENING FOR OTHER BACTER 07/14/2016 VILLA BARAJAS MD Ot K13.0 DISEASES OF LIPS 07/14/2016 VILLA BARAJAS MD Ot K82.4 CHOLESTEROLOSIS OF GALLBLADDER 07/14/2016 VILLA BARAJAS MD Ot Z11.2 ENCOUNTER FOR SCREENING FOR OTHER BACTER 07/22/2016 MADAY MCDONNELL MD Ot D64.9 ANEMIA, UNSPECIFIED 07/22/2016 MADAY MCDONNELL MD Ot E03.9 HYPOTHYROIDISM, UNSPECIFIED 07/22/2016 MADAY MCDONNELL MD Ot E11.9 TYPE 2 DIABETES MELLITUS WITHOUT COMPLIC 07/22/2016 MADAY MCDONNELL MD Ot Z79.899 OTHER [facility] (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 THERAPY 08/27/2016 MADAY MCDONNELL MD, Ot D64.9 ANEMIA, UNSPECIFIED 08/27/2016 MADAY MCDONNELL MD Ot E03.9 HYPOTHYROIDISM, UNSPECIFIED 08/27/2016 MADAY MCDONNELL MD Ot E11.9 TYPE 2 DIABETES MELLITUS WITHOUT COMPLIC 08/27/2016 MADAY MCDONNELL MD Ot Z79.899 OTHER [facility] (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 THERAPY 10/19/2016 MADAY MCDONNELL MD Ot D64.9 ANEMIA, UNSPECIFIED 10/19/2016 MADAY MCDONNELL MD Ot E03.9 HYPOTHYROIDISM, UNSPECIFIED 10/19/2016 MADAY MCDONNELL MD Ot E11.9 TYPE 2 DIABETES MELLITUS WITHOUT COMPLIC 10/19/2016 MADAY MCDONNELL MD Ot Z79.899 OTHER [facility] (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 THERAPY 10/23/2016 MADAY MCDONNELL MD Ot E03.9 HYPOTHYROIDISM, UNSPECIFIED 10/23/2016 MADAY MCDONNELL MD Ot E11.9 TYPE 2 DIABETES MELLITUS WITHOUT COMPLIC 10/23/2016 MADAY MCDONNELL MD Ot E83.118 OTHER HEMOCHROMATOSIS 10/23/2016 MADAY MCDONNELL MD Ot I10 ESSENTIAL (PRIMARY) HYPERTENSION 10/23/2016 MADAY MCDONNELL MD Ot R94.5 ABNORMAL RESULTS OF LIVER FUNCTION STUDI 10/23/2016 MADAY MCDONNELL MD, Ot Z79.899 OTHER [facility] (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 THERAPY 12/02/2016 MADAY MCDONNELL MD, Ot E03.9 HYPOTHYROIDISM, UNSPECIFIED 12/02/2016 MADAY MCDONNELL MD Ot E11.9 TYPE 2 DIABETES MELLITUS WITHOUT COMPLIC 12/02/2016 MADAY MCDONNELL MD Ot E83.118 OTHER HEMOCHROMATOSIS 12/02/2016 MADAY MCDONNELL MD Ot I10 ESSENTIAL (PRIMARY) HYPERTENSION 12/02/2016 MADAY MCDONNELL MD Ot R94.5 ABNORMAL RESULTS OF LIVER FUNCTION STUDI 12/02/2016 MADAY MCDONNELL MD Ot Z79.899 OTHER [facility] (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 THERAPY 01/09/2017 MADAY MCDONNELL MD Ot E03.9 HYPOTHYROIDISM, UNSPECIFIED 01/09/2017 MADAY MCDONNELL MD Ot E11.9 TYPE 2 DIABETES MELLITUS WITHOUT COMPLIC 01/09/2017 MADAY MCDONNELL MD Ot E83.118 OTHER HEMOCHROMATOSIS 01/09/2017 MADAY MCDONNELL MD Ot I10 ESSENTIAL (PRIMARY) HYPERTENSION 01/09/2017 MADAY MCDONNELL MD Ot R94.5 ABNORMAL RESULTS OF LIVER FUNCTION STUDI 01/09/2017 MADAY MCDONNELL MD Ot Z79.899 OTHER [facility] (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 THERAPY 01/20/2017 JANEL AQUINO MD, Ot E03.9 HYPOTHYROIDISM, UNSPECIFIED 01/20/2017 JANEL AQUINO MD, Ot E11.9 TYPE 2 DIABETES MELLITUS WITHOUT COMPLIC 01/20/2017 JANEL AQUINO MD, Ot E83.118 OTHER HEMOCHROMATOSIS 01/20/2017 JANEL AQUINO MD Ot I10 ESSENTIAL (PRIMARY) HYPERTENSION 01/20/2017 JANEL AQUINO MD Ot Z79.899 OTHER [facility] (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 THERAPY 01/28/2017 JANEL AQUINO MD, Ot E03.9 HYPOTHYROIDISM, UNSPECIFIED 01/28/2017 JANEL AQUINO MD Ot E11.9 TYPE 2 DIABETES MELLITUS WITHOUT COMPLIC 01/28/2017 JANEL AQUINO MD Ot E83.118 OTHER HEMOCHROMATOSIS 01/28/2017 JANEL AQUINO MD, Ot I10 ESSENTIAL (PRIMARY) HYPERTENSION 01/28/2017 JANEL AQUINO MD, Ot Z79.899 OTHER [facility] (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 THERAPY 01/28/2017 JANEL AQUINO MD, Ot E03.9 HYPOTHYROIDISM, UNSPECIFIED 01/28/2017 JANEL AQUINO MD, Ot E11.9 TYPE 2 DIABETES MELLITUS WITHOUT COMPLIC 01/28/2017 JANEL AQUINO MD Ot E83.118 OTHER HEMOCHROMATOSIS 01/28/2017 JANEL AQUINO MD, Ot I10 ESSENTIAL (PRIMARY) HYPERTENSION 01/28/2017 JANEL AQUINO MD, Ot Z79.899 OTHER [facility] (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 THERAPY 01/29/2017 CAMDEN BERNSTEIN MD, Ot E03.9 HYPOTHYROIDISM, UNSPECIFIED 01/29/2017 CAMDEN BERNSTEIN MD, Ot E11.9 TYPE 2 DIABETES MELLITUS WITHOUT COMPLIC 01/29/2017 CAMDEN BERNSTEIN MD Ot E83.118 OTHER HEMOCHROMATOSIS 01/29/2017 CAMDEN BERNSTEIN MD, Ot I10 ESSENTIAL (PRIMARY) HYPERTENSION 01/29/2017 CAMDEN BERNSTEIN MD, Ot Z79.899 OTHER [facility] (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 THERAPY 04/03/2017 VADIM DO, ATIF K Ot T18.108A UNSP FOREIGN BODY IN ESOPHAGUS CAUSING O 04/28/2017 CAMDEN BERNSTEIN MD, Ot E03.9 HYPOTHYROIDISM, UNSPECIFIED 04/28/2017 CAMDEN BERNSTEIN MD, Ot E11.9 TYPE 2 DIABETES MELLITUS WITHOUT COMPLIC 04/28/2017 CAMDEN BERNSTEIN MD, Ot E83.118 OTHER HEMOCHROMATOSIS 04/28/2017 CAMDEN BERNSTEIN MD, Ot I10 ESSENTIAL (PRIMARY) HYPERTENSION 04/28/2017 CAMDEN BERNSTEIN MD, Ot Z79.899 OTHER [facility] (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 THERAPY 04/29/2017 CAMDEN BERNSTEIN MD Ot E03.9 HYPOTHYROIDISM, UNSPECIFIED 04/29/2017 CAMDEN BERNSTEIN MD Ot E11.9 TYPE 2 DIABETES MELLITUS WITHOUT COMPLIC 04/29/2017 CAMDEN BERNSTEIN MD Ot E83.118 OTHER HEMOCHROMATOSIS 04/29/2017 CAMDEN BERNSTEIN MD Ot I10 ESSENTIAL (PRIMARY) HYPERTENSION 04/29/2017 CAMDEN BERNSTEIN MD Ot Z79.899 OTHER [facility] (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 THERAPY 05/11/2017 JUAN ELLIS DO Ot Z12.31 ENCNTR SCREEN MAMMOGRAM FOR MALIGNANT NE 05/20/2017 JUAN ELLIS DO, Ot Z12.31 ENCNTR SCREEN MAMMOGRAM FOR MALIGNANT NE Procedures There is no data. Results Test Result Range Urine beta human chorionic gonadotropin (hCG) measurement - 07/01/16 06:10 Urine beta human chorionic gonadotropin (hCG) measurement NEGATIVE NEGATIVE Methicillin resistant Staphylococcus aureus (MRSA) screening culture - 06:50 Methicillin resistant Staphylococcus aureus (MRSA) screening culture NEG NRG Encounters ACCT No. Visit Date/Time Discharge Status Pt. Type Provider Facility Loc./Unit Complaint [id number] 04/26/2013 12:17:00 04/26/2013 23:59:59 CLS Outpatient CANDI MASTERSON DO [id number] 06/15/2017 14:30:00 06/15/2017 15:43:00 DIS Outpatient VILLA BARAJAS MD [facility] PREOP EGD POSS DILATION [id number] 05/07/2017 09:35:00 05/07/2017 23:59:59 CLS Outpatient JUAN ELLIS DO [facility] RAD Z12.31 [id number] 04/29/2017 00:38:00 04/29/2017 23:59:59 CLS Preadmit CAMDEN BERNSTEIN MD [facility] ONC [id number] 01/28/2017 16:05:00 04/28/2017 00:01:00 DIS Outpatient CAMDEN BERNSTEIN MD [facility] ONC [id number] 04/03/2017 18:15:00 04/03/2017 18:19:00 DIS Emergency ATIF FIERRO DO [facility] ER PIECE OF TURKEY STUCK IN THROAT [id number] 01/19/2017 08:15:00 01/28/2017 16:04:00 DIS Outpatient JANEL AQUINO MD [facility] ONC [id number] 10/22/2016 14:56:00 01/09/2017 00:01:00 DIS Outpatient MADAY MCDONNELL MD [facility] ONC [id number] 10/19/2016 08:25:00 10/19/2016 00:01:00 DIS Outpatient MADAY MCDONNELL MD [facility] ONC [id number] 07/01/2016 05:49:00 07/01/2016 11:50:00 DIS Outpatient VILLA BARAJAS MD [facility] SDC CYST ON LIP; DYSKNESIA [id number] 06/25/2016 09:05:00 06/25/2016 10:17:00 DIS Outpatient VILLA BARAJAS MD [facility] PREOP CYST ON LOWER LIP; DYSKNESIA [id number] 06/11/2016 11:30:00 06/18/2016 00:01:00 DIS Outpatient MADAY MCDONNELL MD [facility] ONC [id number] 06/08/2016 08:16:00 06/08/2016 23:59:59 CLS Outpatient JUAN ELLIS DO [facility] RAD GENERALIZED ABDOMINAL PAIN [id number] 06/01/2016 07:18:00 06/01/2016 09:50:00 DIS Outpatient VILLA BARAJAS MD [facility] ENDO SCREENING [id number] 05/28/2016 05:39:00 05/28/2016 13:17:00 DIS Outpatient VILLA BARAJAS MD [facility] PREOP SCREENING [id number] 05/06/2016 08:33:00 05/06/2016 23:59:59 CLS Outpatient MADAY MCDONNELL MD [facility] RAD SCREENING [id number] 12/11/2015 15:27:00 01/20/2016 15:54:00 DIS Outpatient MADAY MCDONNELL MD [facility] ONC [id number] 10/23/2015 09:16:00 12/09/2015 00:01:00 DIS Outpatient MADAY MCDONNELL MD [facility] ONC [id number] 08/05/2015 15:35:00 08/27/2015 00:01:00 DIS Outpatient MADAY MCDONNELL MD [facility] ONC [id number] 06/25/2015 08:16:00 06/25/2015 23:59:59 CLS Outpatient MADAY MCDONNELL MD [facility] RAD ELEVATED LIVER ENZYMES [id number] 02/28/2015 15:13:00 02/28/2015 23:59:59 CLS Outpatient JUAN ELLIS DO [facility] RAD SCREENING [id number] 04/24/2013 15:12:00 04/24/2013 23:59:59 CLS Outpatient JUAN ELLIS DO [facility] RAD SCREENING [id number] 06/21/2017 10:00:00 PEN Preadjasmina BARAJAS MD, VILLA Eddy [facility] ENDO DYSPHAGIA/HEARTBURN
[2017-06-21] MEDS ORDERED: MIDAZOLAM 2 MG/2 ML (VERSED) VIAL ONE ×3 (11:14)
[2017-06-21] MEDS ORDERED: HURRICAINE EXT TUBE (BENZOCAINE) ONE (11:14)
[2017-06-21] MEDS ORDERED: fentaNYL INJECTION 100 MCG/2 ML AMP ONE (11:14)
[2017-06-21] MEDS: MIDAZOLAM 2 MG/2 ML (VERSED) VIAL IVP PRN ×2 (11:27→11:31)
--- NOTE | 2017-06-21 11:29 | History & Physicial ---
History of Present Illness History of Present Illness Reason for visit/HPI to undergo an upper endoscopy with possible balloon dilatation regarding ongoing dysphagia with impending food impaction Date of Admission 06/21/17 Date Seen by Provider: Jun 21, 2017 Time Seen by Provider: 11:28 I consulted on this patient on 06/21/17 11:24 Attending Physician Villa Barajas MD Admitting Physician Lindsey Landers DO Consult Allergies and Home Medications Allergies Coded Allergies: No Known Drug Allergies (Unverified , 05/28/16) Home Medications Levothyroxine Sodium 25 Mcg Tablet, 25 MCG PO DAILY, (Reported) Metformin HCl 1,000 Mg Tablet, 1,000 MG PO BID, (Reported) Venlafaxine HCl 37.5 Mg Tab, 37.5 MG PO DAILY, (Reported) Patient Home Medication List Home Medication List Reviewed: Yes Past Kfefrxi-Sloamg-Ulthgp Hx Patient Social History Marrital Status: Employed/Student: employed Alcohol Use: Denies Use Recreational Drug Use: No Smoking Status: Never a Smoker Recent Foreign Travel: No Contact w/other who traveled: No Recent Hopitalizations: No Recent Infectious Disease Expo: No Immunizations Up To Date Tetanus Booster (TDap): Unknown Seasonal Allergies Seasonal Allergies: No Surgeries Yes Section, Gallbladder Respiratory No Currently Using CPAP: No Currently Using BIPAP: No Neurological Yes Headaches /Migraines Reproductive System Hx Reproductive Disorders: No Sexually Transmitted Disease: No HIV/AIDS: No Female Reproductive Disorders: Denies 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: Menopausal Gastrointestinal Gastroesophageal Reflux Musculoskeletal Arthritis Endocrine Endocrine Disorders: Hypothyroidsim, Diabetes, Non-Insulin dep HEENT Loss of Vision: Denies Hearing Impairment: Denies Psychosocial Behavioral Health Disorders: Anxiety Blood Transfusions Adverse Reaction to a Blood Tr: No (N/A) Constitutional: no symptoms reported EENTM: no symptoms reported Respiratory: no symptoms reported Cardiovascular: no symptoms reported Gastrointestinal: see HPI Genitourinary: no symptoms reported Musculoskeletal: no symptoms reported Skin: no symptoms reported Psychiatric/Neurological: No Symptoms Reported Physical Exam Vital Signs Vital Signs - First Documented 06/21/17 09:27 Temp 98.1 Pulse 72 Resp 18 B/P (MAP) 151/80 (103) Pulse Ox 96 O2 Delivery Room Air Capillary Refill : General Appearance: No Apparent Distress Neck: Normal Inspection Respiratory: Lungs Clear Cardiovascular: Regular Rate, Rhythm Gastrointestinal: Non Tender, Soft Neurologic/Psychiatric: Oriented x3 Skin: Warm/Dry Assessment/Plan Assessment and Plan lady with ongoing dysphagia. Upper endoscopy with possible dilatation Problems: Admission Diagnosis Admission Status: Other (Outpt Proc) VILLA BARAJAS MD Jun 21, 2017 11:29 am
--- NOTE | 2017-06-21 11:31 | Conscious Sedation/ASA ---
Conscious Sedation Pre-Proced Time Reviewed: 11:31 ASA Class: 2 Airway Mallampati Classification: ([place] band appropriate class) I. II. III, IV Lungs Heart ASA score ASA 1: a normal healthy patient ASA 2: a patient with a mild systemic disease (mid diabetes, controlled hypertension, obesity ASA 3: a patient with a severe systemic disease that limits activity (angina , COPD, prior Myocardial infarction) ASA 4: a patient with an incapacitating disease that is a constant threat to life (CHF, renal failure) ASA 5: a moribund patient not expected to survive 24 hrs. (ruptured aneurysm) ASA 6: a declared brain patient whose organs are being harvested. For emergent operations, add the letter E after the classification Grade 1 Sedation Plan: Discussed options with patient/fam Note The patient is an appropriate candidate to undergo the planned procedure, sedation, and anesthesia. The patient immediately re-assessed prior to indication. VILLA BARAJAS MD Jun 21, 2017 11:31 am
--- NOTE | 2017-06-21 11:41 | Endo Procedure Record ---
Endo Procedure Report Date of Procedure Last Colonoscopy: Yes (2017) Jun 21, 2017 Surgeon (s) VILLA BARAJAS MD Post Procedure/Op Diagnosis Esophageal stricture Distal gastric erosions Procedure Performed EGD with balloon dilatation Description of Procedure Anesthesia Type: Conscious Sedation Specimen(s) collected/removed none Description of the Procedure Indication for the procedure: This lady came in for therapeutic endoscopy to evaluate and address progressive dysphagia. Informed consent was obtained after reviewing the procedure in detail. Description of procedure: She was placed in left lateral decubitus position and her vital signs were monitored. Conscious sedation was achieved using Versed and fentanyl. The flexible gastroscope was introduced down the esophagus, past the stomach, into the proximal duodenum. Findings: Esophagus: A smooth, distal, concentric stricture of peptic nature. It was dilated to 20 mm with a balloon. Stomach: A few, shallow erosions were found at the antrum. Duodenum: Normal. She tolerated the procedure well and was taken to the nursing area in a stable condition. Impression: Dysphagia due to esophageal stricture. Balloon dilatation completed. We will use proton pump inhibitor therapy. Copies To: JUAN ELLIS XAVIER M MD Jun 21, 2017 11:41 am
[2017-06-21] MEDS ORDERED: PANT40TA2 PO (11:43)
--- NOTE | 2017-06-21 11:44 | Discharge Inst-Simple/Standard ---
Discharge Inst-Standard Discharge Medications New, Converted or Re-Newed RX: RX on Chart Patient Instructions/Follow Up Plan of Care/Instructions/FU: Follow-up when necessary Activity as Tolerated: Yes Discharge Diet: No Restrictions VILLA BARAJAS MD Jun 21, 2017 11:44 am
[2017-06-21 11:55] VITALS: BP 145/77
[2017-06-21 12:30] VITALS: BP 123/81
[2017-06-21 13:00] VITALS: BP 123/81
== END 2017-06-21 13:00 | disposition home or self-care (01) ==
LOC: ENDO 08:45
PROVIDERS: ATTEND Surgery
DX: K22.2 Esophageal obstruction (principal); K25.9 Gastric ulcer, unspecified as acute or chronic, without hemorrhage or perforation; E03.9 Hypothyroidism, unspecified; E11.9 Type 2 diabetes mellitus without complications; Z79.899 Other long term (current) drug therapy; Z79.84 Long term (current) use of oral hypoglycemic drugs

== ENCOUNTER 2018-02-17 15:15 | Outpatient (RCR) | payer BC ==
[2018-01-19 09:13] LABS: BASOPHILS % (AUTO) 0 % (0-10); EOSINOPHILS # (AUTO) 0.1 10^3/uL (0.0-0.3); EOSINOPHILS % (AUTO) 2 % (0-10); HEMATOCRIT 38 % (35-52); LYMPHOCYTES # (AUTO) 1.7 X 10^3 (1.0-4.0); LYMPHOCYTES % (AUTO) 29 % (12-44); MEAN CORPUSCULAR HEMOGLOBIN 30 PG (25-34); MEAN CORPUSCULAR HGB CONC 34 G/DL (32-36); MEAN CORPUSCULAR VOLUME 86 FL (80-99); MONOCYTES # (AUTO) 0.4 X 10^3 (0.0-1.0); MONOCYTES % (AUTO) 7 % (0-12); NEUTROPHILS # (AUTO) 3.5 X 10^3 (1.8-7.8); NEUTROPHILS % (AUTO) 62 % (42-75); PLATELET COUNT 231 10^3/uL (130-400); RED CELL DISTRIBUTION WIDTH 13.4 % (10.0-14.5); WHITE BLOOD COUNT 5.7 10^3/uL (4.3-11.0)
[2018-01-19 09:32] LABS: ALANINE AMINOTRANSFERASE 53 U/L (0-55); ALBUMIN 4.4 GM/DL (3.2-4.5); ALKALINE PHOSPHATASE 107 U/L (40-136); BILIRUBIN,TOTAL 0.4 MG/DL (0.1-1.0); BUN/CREATININE RATIO 13; CALCIUM 9.4 MG/DL (8.5-10.1); CARBON DIOXIDE 27 MMOL/L (21-32); CHLORIDE 107 MMOL/L (98-107); CREATININE SERUM 0.79 MG/DL (0.60-1.30); GFR ESTIMATED > 60; GLUCOSE 142 MG/DL (70-105); POTASSIUM 3.7 MMOL/L (3.6-5.0); SODIUM 141 MMOL/L (135-145); TOTAL PROTEIN 7.4 GM/DL (6.4-8.2)
[~2018-02-17 15:15] MED LIST changes: +METF-399 PO; -METF1000 PO; +PANT40TA2 PO
== END 2018-04-19 | disposition home or self-care (01) ==
LOC: ONC 15:15
PROVIDERS: ATTEND Internal Medicine Hematology & Oncology
DX: E83.118 Other hemochromatosis (principal); E03.9 Hypothyroidism, unspecified; E11.9 Type 2 diabetes mellitus without complications; I10 Essential (primary) hypertension; Z79.899 Other long term (current) drug therapy
CPT/HCPCS: 36415; 80053; 82728; 85025; 99213

== ENCOUNTER → 2018-08-16 | Outpatient (CLI) | payer BC ==
--- NOTE | 2018-08-17 11:05 | Diagnostic Imaging Report ---
INDICATION: Routine screening. COMPARISON: 05/07/2017 and 05/06/2016. TECHNIQUE: 2D and 3D bilateral screening mammography was performed with CAD. FINDINGS: Scattered fibroglandular densities are identified bilaterally. There is a nodular density in the superior right breast at mid depth, best seen on the MLO view. No definite corresponding density on the CC view is seen. The left breast is unremarkable. No suspicious microcalcifications are seen. IMPRESSION: There is a prominent nodular density in the superior right breast at mid depth, only seen on the MLO view. Additional views including spot compression and ML views are recommended for further evaluation. ACR BI-RADS Category 0: Incomplete. (Needs additional imaging evaluation). Result letter will be mailed to the patient. Note: At least 10% of breast cancer is not imaged by mammography. Dictated by: Dictated on workstation # [id number]
== END ==
LOC: RAD 12:48
PROVIDERS: ATTEND Internal Medicine
DX: Z12.31 Encounter for screening mammogram for malignant neoplasm of breast (principal); R92.8 Other abnormal and inconclusive findings on diagnostic imaging of breast
CPT/HCPCS: 77067

== ENCOUNTER → 2018-08-25 | Outpatient (CLI) | payer BC ==
--- NOTE | 2018-08-25 17:45 | Diagnostic Imaging Report ---
INDICATION: Right breast density. Patient presents for additional views. Correlation is made with diagnostic study earlier the same day as well as screening mammogram from 08/16/2018. FINDINGS: Sonographic interrogation of the upper-outer right breast was performed. No sonographic abnormality is seen. No solid or cystic mass is detected. IMPRESSION: No sonographic abnormality is seen. Area of density noted mammographically most likely represents superimposed fibroglandular tissue. The patient may return to routine annual screening mammography. ACR BI-RADS Category 1: Negative. Dictated by: Dictated on workstation # [id number]
--- NOTE | 2018-08-25 17:49 | Diagnostic Imaging Report ---
INDICATION: Right breast density. Patient presents for additional views. Correlation is made with prior study from 08/16/2018. TECHNIQUE: Unilateral right 2-D and 3-D diagnostic mammography was performed with a Computer Aided Detection (CAD) system. This included spot compression MLO and conventional 90-degree lateral views. FINDINGS: Mild residual density in the upper-outer right breast is seen approximately 8-9 cm deep to the nipple. This may represent fibroglandular tissue, as no discrete mass is seen. There are no suspicious calcifications. IMPRESSION: Mild residual density in the upper-outer right breast posterior depth. Further evaluation of this area with ultrasound is recommended and will be performed. ACR BI-RADS Category 0: Incomplete. (Needs additional imaging evaluation). Result letter will be mailed to the patient. Note: At least 10% of breast cancer is not imaged by mammography. Dictated by: Dictated on workstation # [id number]
== END ==
LOC: RAD 13:53
PROVIDERS: ATTEND Internal Medicine
DX: R92.2 Inconclusive mammogram (principal)

== ENCOUNTER → 2019-11-07 | Outpatient (CLI) | payer BC ==
--- NOTE | 2019-11-08 10:39 | Diagnostic Imaging Report ---
EXAMINATION: Digital mammogram bilateral screening with CAD. INDICATION: Screening. COMPARISON: This study was compared to the prior exams of 08/16/2018, 05/07/2017, and 05/06/2016. PERSONAL HISTORY: At this time, there are no current complaints. FINDINGS: The fibroglandular tissue in both breasts is heterogeneously dense. This does limit the sensitivity of this exam. Overall, there does not appear to have been any significant change when compared to the prior study. No primary or secondary sign of malignancy is noted. IMPRESSION: There is no radiographic evidence for malignancy. ACR BI-RADS Category 1: Negative. Result letter will be mailed to the patient. Note: At least 10% of breast cancer is not imaged by mammography. Dictated by: Dictated on workstation # [id number]
== END ==
LOC: RAD 13:00
PROVIDERS: ATTEND Internal Medicine
DX: Z12.31 Encounter for screening mammogram for malignant neoplasm of breast (principal)
CPT/HCPCS: 77063; 77067

== ENCOUNTER → 2021-01-14 | Outpatient (CLI) | payer BC ==
--- NOTE | 2021-01-14 12:32 | Diagnostic Imaging Report ---
INDICATION: Routine screening. Comparison is made with prior mammogram 10/30/2019 and 08/16/2018. 2-D and 3-D bilateral screening mammography was performed with CAD. Scattered fibroglandular densities are identified bilaterally. The parenchymal pattern is stable. No mass or malignant-appearing microcalcifications are seen. There are benign calcifications present. Axillae are unremarkable. IMPRESSION: No mammographic features suspicious for malignancy are identified. BI-RADS Category 2 ACR BI-RADS Category 2: Benign findings. Result letter will be mailed to the patient. Note: At least 10% of breast cancer is not imaged by mammography. Dictated by: Dictated on workstation # [id number]
== END ==
LOC: RAD 07:27
PROVIDERS: ATTEND Internal Medicine
DX: Z12.31 Encounter for screening mammogram for malignant neoplasm of breast (principal)
CPT/HCPCS: 77063; 77067

== ENCOUNTER → 2022-01-20 | Outpatient (CLI) | payer BC ==
--- NOTE | 2022-01-20 11:29 | Diagnostic Imaging Report ---
INDICATION: Routine screening. COMPARISON: 01/14/2021 and 08/16/2018. TECHNIQUE: 2D and 3D bilateral screening mammography was performed with CAD. FINDINGS: Scattered fibroglandular densities are identified bilaterally. The parenchymal pattern is stable. There are benign calcifications bilaterally. No mass or malignant-appearing microcalcifications are seen. The axillae are unremarkable. IMPRESSION: No mammographic features suspicious for malignancy are identified. ACR BI-RADS Category 2: Benign findings. Result letter will be mailed to the patient. Note: At least 10% of breast cancer is not imaged by mammography. Dictated by: Dictated on workstation # [id number]
--- NOTE | 2022-01-20 12:55 | Diagnostic Imaging Report ---
PROCEDURE: US carotid duplex bilateral. TECHNIQUE: Multiple Real-time grayscale images were obtained over the carotid arteries in various projections bilaterally. Additional spectral analysis and color Doppler duplex images were also obtained. INDICATION: Bilateral carotid stenosis. FINDINGS: There is minimal plaque noted in both carotid systems. The velocities are normal bilaterally. No velocity elevation or stenosis is identified. Both vertebral arteries show antegrade flow. IMPRESSION: No evidence of a hemodynamically significant stenosis. Parameters based on the consensus panel [employer] and Doppler ultrasound criteria published February 2003, Radiology, Volume 229. DOPPLER (peak systolic velocity M/S Right Left CCA 1.4 .58 ICA Proximal .43 .48 ICA Mid .44 .64 ICA Distal .44 .39 RATIO .33 1.1 ECA 1.4 .67 VERT .40 .36 Dictated by: Dictated on workstation # [id number]
--- NOTE | 2022-01-20 17:11 | Diagnostic Imaging Report ---
INDICATION: Postmenopausal state, M85.89, I65.23 COMPARISON: None available FINDINGS: AP Spine L1-L3: [BMD (g/cm2): 1.118] [T-Score: -0.7] [Z-Score: 0.3] [BMD Previous: NA] [BMD % Change: NA] LT Hip Neck: [BMD (g/cm2): 0.986] [T-Score: -0.4] [Z-Score: 0.7] LT Hip Total: [BMD (g/cm2):1.070] [T-Score:0.5] [Z-Score: 1.3] [BMD Previous: NA] [BMD % Change: NA] RT Hip Neck: [BMD (g/cm2):0.968] [T-Score:-0.5] [Z-Score:0.6] RT Hip Total: [BMD (g/cm2):1.077] [T-score:0.5] [Z-Score:1.3] [BMD Previous:NA] [BMD % Change:NA] *Indicates significant change from prior examination based on 95% confidence level. World Health Organization criteria for BMD interpretation classify patients as Normal (T-score at or above -1.0), Osteopenic (T-score between -1.0 and -2.5) or Osteoporotic (T-score at or below -2.5). LIMITATIONS AND MODIFICATION: None. IMPRESSION: 1. Normal bone mineral density. 2. Baseline examination. 3. See below National Osteoporosis Foundation guidelines on when to potentially initiate pharmacologic therapy. Based on the National Osteoporosis Foundation Guidelines, pharmacologic treatment should be initiated in any of the following, unless clinical conditions suggest otherwise: * Any patient with prior fragility fracture of the hip or vertebrae. A spine fracture indicates 5X risk for subsequent spine fracture and 2X risk for subsequent hip fracture. * Osteoporosis (T-score <-2.5). * Postmenopausal women and men age 50 and older with low bone mass/osteopenia (T-score between -1.0 and -2.5) by DXA and 10-year major osteoporotic fracture greater than 20% or a 10-year probability of hip fracture greater than 3%. These fracture risks are supplied above in the FRAX score, if applicable. * Clinician judgement and/or patient preferences may indicate treatment for people with 10-year fracture probabilities above or below these levels. Dictated by: Dictated on workstation # [id number]
== END ==
LOC: RAD 08:23
PROVIDERS: ATTEND Internal Medicine
DX: Z12.31 Encounter for screening mammogram for malignant neoplasm of breast (principal); I65.23 Occlusion and stenosis of bilateral carotid arteries; M85.89 Other specified disorders of bone density and structure, multiple sites; Z78.0 Asymptomatic menopausal state
CPT/HCPCS: 77063; 77067; 77080; 93880

== ENCOUNTER → 2023-01-21 | Outpatient (CLI) | payer BC ==
--- NOTE | 2023-01-21 17:15 | Diagnostic Imaging Report ---
3-D bilateral screening mammogram. 2-D and 3-D bilateral screening mammography was performed with CAD. COMPARISON: This study was compared to the prior exams of 01/20/2022, 01/14/2021 and 11/07/2019. There are no current complaints. FINDINGS: The fibroglandular tissue in both breasts is heterogeneously dense. This does limit the sensitivity of this exam. On the MLO view of the left breast in the far posterior aspect of the superior aspect of the breast, there is a small group of microcalcifications. These were not clearly evident on the prior study nor can they be identified with certainty on XCC view of this exam. I suspect the microcalcifications are in the far lateral aspect of the breast. I would recommend that a compression/magnification view of these microcalcifications be obtained in the ML and XCC projections for further evaluation. A true lateral view and an XCC view of the left breast should also be performed. The overall appearance of the breasts has not changed significantly otherwise. IMPRESSION: Additional mammographic views of the left breast would be recommended for further study. ACR BI-RADS Category 0: Incomplete. (Needs additional imaging evaluation). Result letter will be mailed to the patient. Note: At least 10% of breast cancer is not imaged by mammography. Dictated by: Dictated on workstation # [id number]
== END ==
LOC: RAD 07:10
PROVIDERS: ATTEND Internal Medicine
DX: Z12.31 Encounter for screening mammogram for malignant neoplasm of breast (principal)
CPT/HCPCS: 77063; 77067

== ENCOUNTER → 2023-02-03 | Outpatient (CLI) | payer BC ==
--- NOTE | 2023-02-03 14:39 | Diagnostic Imaging Report ---
Indication: Left breast calcifications. Patient presents for additional views. Comparison is made with screening mammogram from 01/21/2023. Unilateral left 2-D and 3-D diagnostic mammography was performed. This included exaggerated CC view, magnification exaggerated CC and ML views as well as conventional 90 degrees lateral view. CAD. The current study was also evaluated with a Computer Aided Detection (CAD) system. There are calcifications in the upper and outer aspect of the left breast posterior depth. Many of the calcifications were present on prior exam. The majority of calcifications do appear to be round or bulky. No soft tissue mass is seen. No other abnormalities identified. IMPRESSION: BI-RADS Category 3 Probably benign appearing calcifications in the upper outer left breast posterior depth. Even so, follow-up mammogram in 6 months is recommended to show continued stability. ACR BI-RADS Category 3: Probably benign findings. Result letter will be mailed to the patient. Note: At least 10% of breast cancer is not imaged by mammography. Dictated by: Dictated on workstation # [id number]
== END ==
LOC: RAD 12:45
PROVIDERS: ATTEND Internal Medicine
DX: N63.20 Unspecified lump in the left breast, unspecified quadrant (principal)
CPT/HCPCS: 77065; G0279